=== PATIENT | male | born 1980 | race American Indian/Alaskan Native ===

== ENCOUNTER 2017-11-14 18:13 | Inpatient (IN) | payer SELFPAY ==
[2017-11-14] MEDS ORDERED: ZOFRAN ODT PO ONE (20:35)
[2017-11-14] MEDS ORDERED: TYLENOL PO ONE (20:36)
--- NOTE | 2017-11-14 21:18 | XRay Report ---
FINAL REPORT PROCEDURE: XR CHEST ROUTINE 2V TECHNIQUE: PA and lateral chest radiographs were obtained. CPT 81152 HISTORY: cough and right rib pain COMPARISON: No prior studies are available for comparison. FINDINGS: Heart: Normal. Mediastinum/Vessels: Normal. Lungs/Pleural space: Hazy density is noted involving the inferior portion of a right upper lobe above oblique and horizontal fissures most likely representing consolidation. Left lung and bilateral pleural spaces are clear.. Bony thorax: No acute osseous abnormality. Other: IMPRESSION: Consolidation right upper lobe consistent with pneumonia..
[2017-11-14] MEDS ORDERED: XYLOCAINE 1% MPF 5 mL INFILTRATI ONE (21:27)
[2017-11-14] MEDS ORDERED: ROCEPHIN IM STA (21:27)
--- NOTE | 2017-11-14 21:27 | Emergency Department Report ---
HPI - General Chief Complaint: Fever Time Seen by Provider: 11/14/17 21:02 - HPI HPI: Patient here reports that he's been having fever, cough and right rib pain with coughing, pain with inspiration that started at 2 AM this morning. He reports that he feels like he has a fever and also has chills. Positive shortness of breath , negative chest pain. Denies any vomiting but reports nausea.. Pain is worse with coughing and inspiration better at rest. No [id number] medication taken. Patient said he had pneumonia several years ago and that he does not have any medical problems. His blood pressure is 152/104 and denies any headache, dizziness, blurred vision. Patient said he had a cold a couple weeks ago and he took [id number] pain medication and felt better. Patient was given Tylenol 650 mg in triage area along with Zofran 8 mg ODT. ED Past Medical Hx - Past Medical History Previous Medical History?: Yes Additional medical history: Pneumonia several years ago - Surgical History Past Surgical History?: Yes Additional Surgical History: right hand tendon surgery - Family History Family history: hypertension - Social History Smoking Status: Never Smoker Substance Use Type: None - Medications Home Medications: Home Medications Medication Instructions Recorded Confirmed Last Taken Type HYDROcodone/APAP 5-325 [[place] 1 each PO Q6HR PRN #15 tablet 09/16/16 Unknown Rx 5/325] ED Review of Systems ROS: Stated complaint: BREATHING PAIN/FEVER Other details as noted in HPI Comment: All other systems reviewed and negative Constitutional: chills Eyes: denies: eye pain, eye discharge, vision change ENT: denies: ear pain, throat pain, congestion Respiratory: cough, other (pain to ribs with inspiration and when coughing). denies: see HPI, orthopnea, shortness of breath, SOB with exertion, SOB at rest , stridor, wheezing Cardiovascular: denies: chest pain, palpitations, dyspnea on exertion, orthopnea , edema, syncope, paroxysmal nocturnal dyspnea Gastrointestinal: nausea. denies: abdominal pain Genitourinary: denies: urgency, dysuria, frequency, hematuria, discharge, testicular pain, testicular mass Musculoskeletal: denies: back pain, joint swelling, arthralgia, myalgia Skin: denies: rash Neurological: denies: headache Physical Exam - Physical Exam Vital Signs: Vital Signs 11/14/17 20:28 Temperature 100.9 F H Pulse Rate 102 H Respiratory 18 Rate Blood Pressure 152/104 O2 Sat by Pulse 96 Oximetry Vital Signs 11/14/17 11/14/17 11/14/17 19:53 20:28 22:27 Temperature 100.9 F H 100.9 F H Pulse Rate 118 H 102 H 146 H Respiratory 19 18 20 Rate Blood Pressure 152/104 152/104 150/105 O2 Sat by Pulse 94 96 91 Oximetry 11/14/17 11/14/17 22:31 22:36 Temperature 99.6 F Pulse Rate 121 H Respiratory Rate Blood Pressure O2 Sat by Pulse 94 Oximetry General: This is a 37-year-old male well-nourished well-developed in no acute distress. Physical Exam: Head: Normocephalic, atraumatic, no abrasion, no bruising and no contusion. Eyes: Biateral pupils equal and reactive to light, bilateral EOM intact.. Bilateral conjunctival and sclera without injection, normal accommodation. No nystagmus Mouth: Moist, no pharyngeal exudate or erythema. No peritonsillar abscesses. Uvula is midline and oral airways patent. Ears: TM congested without erythema. Bilateral EAC without any redness swelling or drainage. No mastoid bone tenderness Nose: Lateral nasal turbinates congested with erythema and clear drainage. Maxillary and frontal sinuses tender to palpate. Neck: Supple, No Cervical adenopathy, full range of motion and no C-spine tenderness. No swelling or tracheal deviation normal reflexes Cardiovascular: S1, S2. Tachycardic at 121, Regular rhythm. No murmur. Capillary refill is less then 3 seconds. Lungs: Clear to auscultate bilaterally. No rhonchi, wheezes or rales. No chest wall tenderness. No chest contusion. No bruising to chest. MSK: Strength 5/5 in all extremities. No joint deformity or crepitus. Normal inspection. Full range of motion to all extremities. No laceration, abrasion or ecchymotic area noted. Patient able to fully flex and extend bilateral knees without any difficulties. Bilateral knees nontender to palpate. Abdomen: Non-tender to palpate in all quadrants, no guarding or rebound tenderness, positive bowel sounds in all quadrants. No CVA tenderness. No hernia, bruit or mass. No rigidity or distention. Extremities: No clubbing, cyanosis or edema. +2 pulses. No neurovascular compromise Skin: Clean, dry and intact. No rash or lesions. Neurological: GCS at 15, Pt is alert and oriented 3 speech is clear period. Bilateral hand district captain strong and equal. Normal gait. Negative Romberg and no pronator drift. Normal Reflexes. No motor or sensory deficit Back: No vertebral tenderness, no paraspinal tenderness. The bend over and touch his toes without any difficulties. Ambulates without any difficulties. Psych: Normal mood and behavior ED Course Vital Signs 11/14/17 20:28 Temperature 100.9 F H Pulse Rate 102 H Respiratory 18 Rate Blood Pressure 152/104 O2 Sat by Pulse 96 Oximetry Vital Signs 11/14/17 11/14/17 11/14/17 19:53 20:28 22:27 Temperature 100.9 F H 100.9 F H Pulse Rate 118 H 102 H 146 H Respiratory 19 18 20 Rate Blood Pressure 152/104 152/104 150/105 O2 Sat by Pulse 94 96 91 Oximetry 11/14/17 22:31 Temperature 99.6 F Pulse Rate Respiratory Rate Blood Pressure O2 Sat by Pulse Oximetry Vital Signs 11/14/17 11/14/17 11/14/17 19:53 20:28 22:27 Temperature 100.9 F H 100.9 F H Pulse Rate 118 H 102 H 146 H Respiratory 19 18 20 Rate Blood Pressure 152/104 152/104 150/105 O2 Sat by Pulse 94 96 91 Oximetry 11/14/17 11/14/17 22:31 22:36 Temperature 99.6 F Pulse Rate 121 H Respiratory Rate Blood Pressure O2 Sat by Pulse 94 Oximetry - Reevaluation(s) Reevaluation #1: 11/14/17 22:44 Patient given Rocephin 1 g IM in emergency room. He was challenged with 6 cups of apple juice orally and he tolerated without any vomiting. Patient was given Tylenol 650 mg in triage area along with Zofran 8 mg ODT for fever, pain and Zofran for nausea and he voiced relief of nausea but that he still having pain. Morphine 4 mg IV ordered. Decision made to admit patient due to pulse ox of 94% on room air, tachycardia and elevated white blood cells that greater than 25. Patient says he is still short of breath. Patient's chest x-ray shows right upper lobe pneumonia. Patient given Xopenex 1.25 mg and Atrovent 0.5 mg nebulizer treatment. With elevated blood pressure but he denies any history of hypertension Reevaluation #2: 11/14/17 23:12 lactic acid is 3.0. We'll obtain serial lactic acid. Dr. Warren notified. Patient to get another liter of IV fluid. Sepsis protocol already initiated. 11/14/17 23:18 ED Medical Decision Making - Lab Data Result diagrams: 11/16/17 06:14 11/16/17 06:14 Lab Results 11/14/17 11/14/17 11/14/17 Range/Units 21:50 21:50 21:50 WBC 26.5 H (4.5-11.0) K/mm3 RBC 5.68 H (3.65-5.03) M/mm3 Hgb 13.9 (11.8-15.2) gm/dl Hct 42.4 (35.5-45.6) % MCV 75 L (84-94) fl MCH 25 L (28-32) pg MCHC 33 (32-34) % RDW 15.7 H (13.2-15.2) % Plt Count 261 (140-440) K/mm3 VBG pH 7.426 H (7.320-7.420) Sodium 136 L (137-145) mmol/L Potassium 3.4 L (3.6-5.0) mmol/L Chloride 94.9 L (98-107) mmol/L Carbon Dioxide 22 (22-30) mmol/L Anion Gap 23 mmol/L BUN 8 L (9-20) mg/dL Creatinine 0.9 (0.8-1.5) mg/dL Estimated GFR > 60 ml/min BUN/Creatinine Ratio 9 % Glucose 146 H (75-100) mg/dL Calcium 8.9 (8.4-10.2) mg/dL Blood cultures pending Lactic Acid pending - Radiology Data Radiology results: report reviewed Chest x-ray revealed patient with consolidation to right upper lobe consistent with pneumonia. - Medical Decision Making ED course: She reports that he's been having fever, cough and right rib pain worse with coughing and inspiration started at 2 AM this morning. He came to the emergency room for evaluation. Patient found to have right upper lobe pneumonia, fever in adults, cough in adults and leukocytosis. CBC white count of greater than 25 and other values are pending., BMP potassium 3.4, hyponatremia. CO2 is a 22 . Lactic acid is pending. Venous pH is mildly elevated. Patient orally challenge and emergency room and tolerated fluids well but he still remains with tachycardia, shortness of breath and pain with inspiration. Still awaiting results of lactic acid and blood cultures are pending. Arterial blood gas ordered. Patient to receive 1 L of normal saline and he was given Rocephin 1 g IM. INT started and patient to receive morphine 4 mg IV. Patient was given Zofran 8 mg ODT for nausea which relieved his nausea and triage area and Tylenol 650 mg by mouth for fever and pain. I spoke with Dr. Hein and it was decided the patient will be admitted for further treatment of community-acquired pneumonia. He's been admitted for low O2 sat, tachycardia, leukocytosis and community-acquired pneumonia that is not stable. I discussed patient's plans to admit and is in agreement. Patient is stable at present. His blood pressure is elevated and patient reports that he does not have a history of high blood pressure. We'll continue to monitor and care taken over by hospitalist. Dr. Warren, notified of patient lab results included in lactic acid which is 3.0. IV fluid infusing. I updated Dr. Hein on labs and patient's status. Critical care attestation.: If time is entered above; I have spent that time in minutes in the direct care of this critically ill patient, excluding procedure time. ED Disposition Clinical Impression: Cough in adult, Fever and chills, Hypokalemia, Tachycardia, Hyponatremia Pneumonia Qualifiers: Pneumonia type: due to unspecified organism Laterality: right Lung location: upper lobe of lung Qualified Code(s): J18.1 - Lobar pneumonia, unspecified organism Leukocytosis Qualifiers: Leukocytosis type: unspecified Qualified Code(s): D72.829 - Elevated white blood cell count, unspecified Disposition: OP ADMIT IP TO THIS HOSP Is pt being admited?: Yes Does the pt Need Aspirin: No Condition: Stable
[2017-11-14] MEDS ORDERED: XOPENEX IH ONE (21:31)
[2017-11-14] MEDS ORDERED: ATROVENT IH ONE (21:31)
[2017-11-14 22:06] LABS: Hematocrit 42.4 % (35.5-45.6); Hemoglobin 13.9 gm/dl (11.8-15.2); Mean Corpuscular HGB Conc 33 % (32-34); Mean Corpuscular Volume 75 fl (84-94); Platelet Count 261 K/mm3 (140-440); Red Blood Count 5.68 M/mm3 (3.65-5.03); Red Cell Distribution Width 15.7 % (13.2-15.2)
[2017-11-14 22:08] LABS: Mean Corpuscular Hemoglobin 25 pg (28-32)
[2017-11-14 22:24] LABS: BUN/Creatinine Ratio 9; Blood Urea Nitrogen 8 mg/dL (9-20); Calcium 8.9 mg/dL (8.4-10.2); Hemolysis Index 3
[2017-11-14] MEDS ORDERED: NACL 0.9% 1000 ML 1,000 ML IV ONE ×2 (22:41→23:18)
[2017-11-14] MEDS ORDERED: K-DUR PO ONE (22:41)
[2017-11-14] MEDS ORDERED: MORPHINE IV ONE (22:43)
[2017-11-14 23:03] LABS: Band Neutrophils # (Manual) 2.4 K/mm3; Basophils % (Manual) 0 % (0.0-1.8); Eosinophils % (Manual) 0 % (0.0-4.3); Large Platelets Few; RBC Morphology Normal; Total Cells Counted 200
[2017-11-14] MEDS ORDERED: cefTRIAXone 1 GM in NACL 0.9% 20 ML IV ONE (23:05)
[2017-11-14] MEDS ORDERED: ZITHROMAX 500 MG in NACL 0.9% 250ML 250 ML IV ONE (23:05)
[2017-11-14] MEDS ORDERED: SODIUM CHLORIDE FLUSH SYRINGE 10 ML IV PRN (23:08)
[2017-11-14 23:58] LABS: INR 1.06 (0.87-1.13)
--- NOTE | 2017-11-15 00:02 | History and Physical Report ---
History of Present Illness Date of examination: 11/14/17 Date of admission: 11/14/17 23:08 Chief complaint: chief complaint: Fever cough for 1 day. History of present illness: YOHANA: 37-year-old -[place] male with no significant past medical history comes in for fever cough and right chest pain with inspiration.. All the symptoms started last nigh around 2 AM. Also has fever and chills and shortness of breath. Also has muscle aches.cough or a mucoid sputum to yellow sputum. No recent travel. - Past Medical History Previous Medical History?: Yes Additional medical history: Pneumonia several years ago - Surgical History Past Surgical History?: Yes Additional Surgical History: right hand tendon surgery - Family History Family history: hypertension - Social History Smoking Status: Never Smoker Substance Use Type: None - Medications Home Medications: Home Medications Medication Instructions Recorded Confirmed Last Taken Type HYDROcodone/APAP 5-325 [[place] 1 each PO Q6HR PRN #15 tablet 09/16/16 Unknown Rx 5/325] ROS: Stated complaint: BREATHING PAIN/FEVER Other details as noted in HPI Comment: All other systems reviewed and negative Constitutional: chills Eyes: denies: eye pain, eye discharge, vision change ENT: denies: ear pain, throat pain, congestion Respiratory: cough, other (pain to ribs with inspiration and when coughing). denies: see HPI, orthopnea, shortness of breath, SOB with exertion, SOB at rest , stridor, wheezing Cardiovascular: denies: chest pain, palpitations, dyspnea on exertion, orthopnea , edema, syncope, paroxysmal nocturnal dyspnea Gastrointestinal: nausea. denies: abdominal pain Genitourinary: denies: urgency, dysuria, frequency, hematuria, discharge, testicular pain, testicular mass Musculoskeletal: denies: back pain, joint swelling, arthralgia, myalgia Skin: denies: rash Neurological: denies: headache Medications and Allergies Allergies Allergy/AdvReac Type Severity Reaction Status Date / Time No Known Allergies Allergy Unverified 09/14/15 00:36 Home Medications Medication Instructions Recorded Confirmed Last Taken Type HYDROcodone/APAP 5-325 [[place] 1 each PO Q6HR PRN #15 tablet 09/16/16 Unknown Rx 5/325] Active Meds: Active Medications Azithromycin 500 mg/ Sodium (Chloride) 250 mls @ 250 mls/hr IV ONCE.ED ONE Stop: 11/15/17 00:04 Sodium Chloride (Nacl 0.9% 1000 Ml) 1,000 mls @ 999 mls/hr IV BOLUS ONE Stop: 11/15/17 00:18 Sodium Chloride (Sodium Chloride Flush Syringe 10 Ml) 10 ml IV PRN PRN PRN Reason: LINE FLUSH Exam - Constitutional Vitals: Temp Pulse Resp BP Pulse Ox 99.6 F 121 H 20 150/105 94 11/14/17 22:31 11/14/17 22:36 11/14/17 22:54 11/14/17 22:27 11/14/17 22:36 General appearance: Present: no acute distress, well-nourished - EENT Eyes: Present: PERRL ENT: hearing intact, clear oral mucosa - Neck Neck: Present: supple, normal ROM - Respiratory Respiratory effort: normal Respiratory: right: rales, rhonchi, bilateral: CTA - Cardiovascular Heart rate: 90 Rhythm: regular Heart Sounds: Present: S1 & S2. Absent: rub, click - Extremities Extremities: no ischemia, pulses intact, pulses symmetrical, No edema Peripheral Pulses: within normal limits - Abdominal General gastrointestinal: Present: soft, non-tender, non-distended, normal bowel sounds Male genitourinary: Present: normal - Rectal Rectal Exam: deferred - Integumentary Integumentary: Present: clear, warm, dry - Musculoskeletal Musculoskeletal: gait normal, strength equal bilaterally - Psychiatric Psychiatric: appropriate mood/affect, intact judgment & insight - Neurologic Neurologic: CNII-XII intact, moves all extremities - Allied Health Allied health notes reviewed: nursing, case management Results - Labs CBC & Chem 7: 11/14/17 21:50 11/14/17 21:50 Labs: Laboratory Last Values WBC 26.5 K/mm3 (4.5-11.0) H 11/14/17 21:50 RBC 5.68 M/mm3 (3.65-5.03) H 11/14/17 21:50 Hgb 13.9 gm/dl (11.8-15.2) 11/14/17 21:50 Hct 42.4 % (35.5-45.6) 11/14/17 21:50 MCV 75 fl (84-94) L 11/14/17 21:50 MCH 25 pg (28-32) L 11/14/17 21:50 MCHC 33 % (32-34) 11/14/17 21:50 RDW 15.7 % (13.2-15.2) H 11/14/17 21:50 Plt Count 261 K/mm3 (140-440) 11/14/17 21:50 Add Manual Diff Complete 11/14/17 21:50 Total Counted 200 11/14/17 21:50 Seg Neuts % (Manual) 79.0 % (40.0-70.0) H 11/14/17 21:50 Band Neutrophils % 9.0 % 11/14/17 21:50 Lymphocytes % (Manual) 9.0 % (13.4-35.0) L 11/14/17 21:50 Reactive Lymphs % (Man) 0 % 11/14/17 21:50 Monocytes % (Manual) 3.0 % (0.0-7.3) 11/14/17 21:50 Eosinophils % (Manual) 0 % (0.0-4.3) 11/14/17 21:50 Basophils % (Manual) 0 % (0.0-1.8) 11/14/17 21:50 Metamyelocytes % 0 % 11/14/17 21:50 Myelocytes % 0 % 11/14/17 21:50 Promyelocytes % 0 % 11/14/17 21:50 Blast Cells % 0 % 11/14/17 21:50 Nucleated RBC % Not Reportable 11/14/17 21:50 Seg Neutrophils # Man 20.9 K/mm3 (1.8-7.7) H 11/14/17 21:50 Band Neutrophils # 2.4 K/mm3 11/14/17 21:50 Lymphocytes # (Manual) 2.4 K/mm3 (1.2-5.4) 11/14/17 21:50 Abs React Lymphs (Man) 0.0 K/mm3 11/14/17 21:50 Monocytes # (Manual) 0.8 K/mm3 (0.0-0.8) 11/14/17 21:50 Eosinophils # (Manual) 0.0 K/mm3 (0.0-0.4) 11/14/17 21:50 Basophils # (Manual) 0.0 K/mm3 (0.0-0.1) 11/14/17 21:50 Metamyelocytes # 0.0 K/mm3 11/14/17 21:50 Myelocytes # 0.0 K/mm3 11/14/17 21:50 Promyelocytes # 0.0 K/mm3 11/14/17 21:50 Blast Cells # 0.0 K/mm3 11/14/17 21:50 WBC Morphology Not Reportable 11/14/17 21:50 Hypersegmented Neuts Not Reportable 11/14/17 21:50 Hyposegmented Neuts Not Reportable 11/14/17 21:50 Hypogranular Neuts Not Reportable 11/14/17 21:50 Smudge Cells Not Reportable 11/14/17 21:50 Toxic Granulation Not Reportable 11/14/17 21:50 Toxic Vacuolation Not Reportable 11/14/17 21:50 Dohle Bodies Not Reportable 11/14/17 21:50 Pelger-Huet Anomaly Not Reportable 11/14/17 21:50 Lacho Rods Not Reportable 11/14/17 21:50 Platelet Estimate Appears normal 11/14/17 21:50 Clumped Platelets Not Reportable 11/14/17 21:50 Plt Clumps, EDTA Not Reportable 11/14/17 21:50 Large Platelets Few 11/14/17 21:50 Giant Platelets Not Reportable 11/14/17 21:50 Platelet Satelliting Not Reportable 11/14/17 21:50 Plt Morphology Comment Not Reportable 11/14/17 21:50 RBC Morphology Normal 11/14/17 21:50 Dimorphic RBCs Not Reportable 11/14/17 21:50 Polychromasia Not Reportable 11/14/17 21:50 Hypochromasia Not Reportable 11/14/17 21:50 Poikilocytosis Not Reportable 11/14/17 21:50 Anisocytosis Not Reportable 11/14/17 21:50 Microcytosis Not Reportable 11/14/17 21:50 Macrocytosis Not Reportable 11/14/17 21:50 Spherocytes Not Reportable 11/14/17 21:50 Pappenheimer Bodies Not Reportable 11/14/17 21:50 Sickle Cells Not Reportable 11/14/17 21:50 Target Cells Not Reportable 11/14/17 21:50 Tear Drop Cells Not Reportable 11/14/17 21:50 Ovalocytes Not Reportable 11/14/17 21:50 Helmet Cells Not Reportable 11/14/17 21:50 Lambert-Anon Raices Bodies Not Reportable 11/14/17 21:50 Matthews Rings Not Reportable 11/14/17 21:50 [place] Cells Not Reportable 11/14/17 21:50 Bite Cells Not Reportable 11/14/17 21:50 Crenated Cell Not Reportable 11/14/17 21:50 Elliptocytes Not Reportable 11/14/17 21:50 Acanthocytes (Spur) Not Reportable 11/14/17 21:50 Rouleaux Not Reportable 11/14/17 21:50 Hemoglobin C Crystals Not Reportable 11/14/17 21:50 Schistocytes Not Reportable 11/14/17 21:50 Malaria parasites Not Reportable 11/14/17 21:50 Dm Bodies Not Reportable 11/14/17 21:50 Hem Pathologist Commnt No 11/14/17 21:50 PT 14.4 Sec. (12.2-14.9) 11/14/17 23:31 INR 1.06 (0.87-1.13) 11/14/17 23:31 POC ABG pH 7.413 (7.35-7.45) 11/14/17 23:21 POC ABG pCO2 28.4 (35-45) L 11/14/17 23:21 POC ABG pO2 75 (80-105) L 11/14/17 23:21 POC ABG HCO3 18.1 11/14/17 23:21 POC ABG Total CO2 19 11/14/17 23:21 POC ABG O2 Sat 95 11/14/17 23:21 POC ABG Base Excess -6 11/14/17 23:21 VBG pH 7.426 (7.320-7.420) H 11/14/17 21:50 FiO2 21 % 11/14/17 23:21 Sodium 136 mmol/L (137-145) L 11/14/17 21:50 Potassium 3.4 mmol/L (3.6-5.0) L 11/14/17 21:50 Chloride 94.9 mmol/L (98-107) L 11/14/17 21:50 Carbon Dioxide 22 mmol/L (22-30) 11/14/17 21:50 Anion Gap 23 mmol/L 11/14/17 21:50 BUN 8 mg/dL (9-20) L 11/14/17 21:50 Creatinine 0.9 mg/dL (0.8-1.5) 11/14/17 21:50 Estimated GFR > 60 ml/min 11/14/17 21:50 BUN/Creatinine Ratio 9 % 11/14/17 21:50 Glucose 146 mg/dL (75-100) H 11/14/17 21:50 Lactic Acid 3.00 mmol/L (0.7-2.0) H* 11/14/17 21:50 Calcium 8.9 mg/dL (8.4-10.2) 11/14/17 21:50 - Imaging and Cardiology EKG: report reviewed (sinus tachycardia) Chest x-ray: report reviewed (right upper lobe pneumonia) Assessment and Plan Advance Directives: Yes (full code ) VTE prophylaxis?: Chemical Plan of care discussed with patient/family: Yes - Patient Problems (1) Pneumonia Current Visit: Yes Status: Acute Qualifiers: Pneumonia type: due to unspecified organism Laterality: right Lung location: upper lobe of lung Qualified Code(s): J18.1 - Lobar pneumonia, unspecified organism Plan to address problem: patient has massive consolidation in the right upper lobe. Will treat with Rocephin and Zithromax. Clinical picture consistent with bacterial pneumonia. Tuberculosis is a low possibility.patient not isolated. ID consult requested. (2) Leukocytosis Current Visit: Yes Status: Acute Qualifiers: Leukocytosis type: unspecified Qualified Code(s): D72.829 - Elevated white blood cell count, unspecified Plan to address problem: Secondary to pneumonia (3) SIRS (systemic inflammatory response syndrome) Current Visit: Yes Status: Acute Plan to address problem: patient has leukocytosis and high fever consistent with SIRS (4) Hypokalemia Current Visit: Yes Status: Acute Plan to address problem: supplemented (5) DVT prophylaxis Current Visit: Yes Status: Acute Plan to address problem: on Lovenox
[2017-11-15 00:07] LABS: Alanine Aminotransferase 34 units/L (7-56); Albumin 3.8 g/dL (3.9-5); Bilirubin,Direct 0.4 mg/dL (0-0.2)
[2017-11-15 00:10] LABS: Bilirubin,Urine NEG (Negative); Blood,Urine NEG (Negative); Color,Urine Amber (Yellow); Mucus,Urine FEW /HPF; Nitrite,Urine NEG (Negative); Urobilinogen,Urine < 2.0 mg/dL (<2.0)
[2017-11-15] MEDS ORDERED: NACL 0.9% 1000 ML 1,000 ML ONE (00:16)
[2017-11-15] MEDS ORDERED: MORPHINE IV ONE (04:25)
[2017-11-15] MEDS ORDERED: MORPHINE ONE (04:27)
[2017-11-15] MEDS ORDERED: K-DUR PO ONE ×3 (07:12→07:32)
[2017-11-15] MEDS ORDERED: NORCO 5/325 PO PRN (08:16)
--- NOTE | 2017-11-15 08:51 | Cat Scan Report ---
FINAL REPORT EXAM: CT ANGIO CHEST HISTORY: SOB TECHNIQUE: CT angiography of the chest was performed. 100 cc Omnipaque 350 IV was administered. Coronal and sagittal reformatted images were obtained. Rotational MIPS images obtained PRIORS: . None. FINDINGS: There is no significant mediastinal or hilar mass seen. There is no aortic dissection seen. There are no filling defects seen within the pulmonary arterial circulation to suggest pulmonary embolism. There are no pleural effusions seen. There is an area of right upper lobe consolidation which is compatible with pneumonia. There are additional coarse parenchymal densities in the right lower lobe which is probably atelectasis although additional infiltrate not excluded. There are multiple small air containing cysts/pneumatocele bilaterally. The ones in the lower lungs are unchanged from priors CT abdomen/pelvis of 09/16/2016. There is no pneumothorax seen. There is fatty infiltration of the liver. IMPRESSION: Right upper lobe pneumonia. Coarse parenchymal densities in the right lower lobe probably reflect atelectasis although additional infiltrate not excluded. There is no pulmonary embolism or aortic dissection seen. Fatty liver.
[2017-11-15] MEDS: NORCO 5/325 PO PRN ×2 (11:19→23:42)
[2017-11-15] MEDS: GUAIFENESIN DM SYRUP PO PRN (11:20)
[2017-11-15] MEDS: LEVAQUIN 750MG/150ML 750 MG/150 ML BAG IV SCH (11:21)
[2017-11-15] MEDS: PROVENTIL IH SCH ×2 (11:54→16:20)
--- NOTE | 2017-11-15 12:45 | Consultation ---
History of Present Illness - Reason for Consult Consult date: 11/15/17 pneumonia Requesting physician: WALESKA MONET - History of Present Illness 37 years old male with no known medical history, admitted on 11/14/2017 due to 3 day history of runny nose, chest congestion and productive cough with yellowish sputum. Patient reports that his son has been sick with a cold. Patient also was c/o right sided chest pain worsening with inspiration. Pain was 8/10. He also c/o fever 102 and chills. Patient did not have the flu shot. Patient reported that he woke up coughing and decided to come to the emergency room. In the emergency room, initial temperature was 100.9, heart rate 118, respirations 19, O2 sat 94, blood pressure 152/104. Initial white count 26.5. Creatinine 0.9. Lactic acid 3. Urinalysis was negative. Monospot negative. Chest x-ray showing right upper lobe and right lower lobe consolidation. Microbiology: Blood cultures: 11/14 ngtd Urine cultures: Respiratory cultures: Current Antimicrobials: Levaquin 11/14 Previous Antimicrobials: Past History Past Surgical History: No surgical history Social history: no significant social history, alcohol abuse. denies: smoking Family history: no significant family history Medications and Allergies Allergies Allergy/AdvReac Type Severity Reaction Status Date / Time No Known Allergies Allergy Unverified 09/14/15 00:36 Home Medications Medication Instructions Recorded Confirmed Last Taken Type HYDROcodone/APAP 5-325 [[place] 1 each PO Q6HR PRN #15 tablet 09/16/16 Unknown Rx 5/325] Active Meds: Active Medications Acetaminophen/Hydrocodone Bitart ([place] 5/325) 2 each PO Q6H PRN PRN Reason: Pain Last Admin: 11/15/17 11:19 Dose: 2 each Albuterol (Proventil) 2.5 mg IH Q4HRT FAN Last Admin: 11/15/17 11:54 Dose: 2.5 mg Guaifenesin (Guaifenesin Dm Syrup) 10 ml PO Q4H PRN PRN Reason: Cough Last Admin: 11/15/17 11:20 Dose: 10 ml Levofloxacin/Dextrose (Levaquin 750mg/150ml) 750 mg in 150 mls @ 100 mls/hr IV Q24HR FAN PRN Reason: Protocol Last Admin: 11/15/17 11:21 Dose: 100 mls/hr Sodium Chloride (Sodium Chloride Flush Syringe 10 Ml) 10 ml IV PRN PRN PRN Reason: LINE FLUSH Review of Systems All systems: negative (as per hpi rest neg) Physical Examination - Physical Exam Narrative exam: General appearance: Alert in NAD, conversant Eyes: anicteric sclerae, moist conjunctivae; no lid-lag; PERRLA HENT: Atraumatic; oropharynx clear with moist mucous membranes and no mucosal ulcerations/no oral thrush; normal hard and soft palate. Normal external ears. Neck: Trachea midline; supple, no thyromegaly or lymphadenopathy Lungs: right sided crackles CV: RRR, no murmurs Abdomen: Soft, non-tender; no masses or hepatosplenomegaly Extremities: No peripheral edema or extremity lymphadenopathy Skin: Normal temperature, turgor and texture; no rash, ulcers or subcutaneous nodules Psych: Appropriate affect, alert and oriented to person, place and time. Neuro: alert and oriented x 3. Moving all extermities Lines: No CVL / PICC - Constitutional Vitals: Vital Signs Temp Pulse Resp BP Pulse Ox 98.6 F 100 H 18 154/103 94 11/15/17 09:53 11/15/17 11:54 11/15/17 11:54 11/15/17 09:53 11/15/17 10:00 Temperature -Last 24 Hours Temperature 98.6 F Temperature 99.9 F Temperature 99.8 F Temperature 99.6 F Temperature 100.9 F Temperature 100.9 F Results - Labs CBC & Chem 7: 11/14/17 21:50 11/14/17 21:50 Labs: Abnormal lab results 11/14/17 11/14/17 11/14/17 Range/Units 21:50 21:50 21:50 WBC 26.5 H (4.5-11.0) K/mm3 RBC 5.68 H (3.65-5.03) M/mm3 MCV 75 L (84-94) fl MCH 25 L (28-32) pg RDW 15.7 H (13.2-15.2) % Seg Neuts % (Manual) 79.0 H (40.0-70.0) % Lymphocytes % (Manual) 9.0 L (13.4-35.0) % Seg Neutrophils # Man 20.9 H (1.8-7.7) K/mm3 POC ABG pCO2 (35-45) POC ABG pO2 (80-105) VBG pH (7.320-7.420) Sodium 136 L (137-145) mmol/L Potassium 3.4 L (3.6-5.0) mmol/L Chloride 94.9 L (98-107) mmol/L BUN 8 L (9-20) mg/dL Glucose 146 H (75-100) mg/dL Lactic Acid 3.00 H* (0.7-2.0) mmol/L Total Bilirubin (0.1-1.2) mg/dL Direct Bilirubin (0-0.2) mg/dL C-Reactive Protein (0.00-1.30) mg/dL Albumin (3.9-5) g/dL Ur Specific [place] (1.003-1.030) 11/14/17 11/14/17 11/14/17 Range/Units 21:50 23:21 23:26 WBC (4.5-11.0) K/mm3 RBC (3.65-5.03) M/mm3 MCV (84-94) fl MCH (28-32) pg RDW (13.2-15.2) % Seg Neuts % (Manual) (40.0-70.0) % Lymphocytes % (Manual) (13.4-35.0) % Seg Neutrophils # Man (1.8-7.7) K/mm3 POC ABG pCO2 28.4 L (35-45) POC ABG pO2 75 L (80-105) VBG pH 7.426 H (7.320-7.420) Sodium (137-145) mmol/L Potassium (3.6-5.0) mmol/L Chloride (98-107) mmol/L BUN (9-20) mg/dL Glucose (75-100) mg/dL Lactic Acid (0.7-2.0) mmol/L Total Bilirubin (0.1-1.2) mg/dL Direct Bilirubin (0-0.2) mg/dL C-Reactive Protein (0.00-1.30) mg/dL Albumin (3.9-5) g/dL Ur Specific [place] 1.032 H (1.003-1.030) 11/14/17 Range/Units 23:31 WBC (4.5-11.0) K/mm3 RBC (3.65-5.03) M/mm3 MCV (84-94) fl MCH (28-32) pg RDW (13.2-15.2) % Seg Neuts % (Manual) (40.0-70.0) % Lymphocytes % (Manual) (13.4-35.0) % Seg Neutrophils # Man (1.8-7.7) K/mm3 POC ABG pCO2 (35-45) POC ABG pO2 (80-105) VBG pH (7.320-7.420) Sodium (137-145) mmol/L Potassium (3.6-5.0) mmol/L Chloride (98-107) mmol/L BUN (9-20) mg/dL Glucose (75-100) mg/dL Lactic Acid (0.7-2.0) mmol/L Total Bilirubin 1.30 H (0.1-1.2) mg/dL Direct Bilirubin 0.4 H (0-0.2) mg/dL C-Reactive Protein 19.90 H (0.00-1.30) mg/dL Albumin 3.8 L (3.9-5) g/dL Ur Specific [place] (1.003-1.030) Assessment and Plan Assessment: 1) Sepsis: Present on admission, manifested by fever, tachycardia, leukocytosis , increased lactate. Etiology most likely pneumonia. 2) Right sided pneumonia: likely CAP Plan: -follow-up blood cultures -obtain respiratory cultures C-reactive protein (CRP) -check influenza antigen PCR in nasopharinx -check Legionella urine antigen, Streptococcus pneumoniae urine antigen, Mycoplasma serology, Chlamydia pneumophila serology -add ceftriaxone 2 g IV q day -continue levaquin -monitor fever -check HIV -If clinically better ok to d/c on levaquin 750 m po qday total [address] Monet for your consultation, will follow up with you. Anjana Villagomez MD Infectious Diseases Specialist [facility] ([facility]) M [phone] O [phone]
[2017-11-15] MEDS ORDERED: ROCEPHIN/NS 2 GM/100 ML 2 GM/100 ML BAG IV SCH (13:00)
--- NOTE | 2017-11-15 13:18 | Progress Note ---
Assessment and Plan Assessment and plan: 37-year-old -[place] male with no significant past medical history admitted to the floor for management of pneumonia after he was presented to his cough, fever, runny nose for the last 3 days. Sepsis Pneumonia, right upper lobe Pleuritic chest pain Lactic acidosis, resolved - Patient is on IV Levaquin and ceftriaxone - CT showed right upper lobe pneumonia, no PE - IV fluids - Pain control - Follow blood cultures, repeat CBC and BMP - ID consult appreciated DVT prophylaxis Disposition - Possible discharge tomorrow with by mouth antibiotics History Interval history: Patient was seen and divided this morning, he was complaining right-sided pleuritic chest pain. Hospitalist Physical - Physical exam Narrative exam: Not in cardiopulmonary distress. The patient appeared well nourished and normally developed. Vital signs as documented. Head exam is unremarkable. No scleral icterus . Neck is without jugular venous distension, thyromegaly, or carotid bruits. Lungs coarse crepitus on the right lung. Cardiac exam reveals regular rate and Rhythm. First and second heart sounds normal. No murmurs, rubs or gallops. Abdominal exam reveals normal bowel sounds, no masses, no organomegaly and no aortic enlargement. Extremities are nonedematous and both femoral and pedal pulses are normal. DATA MODELING SPECIALIST: Alert and oriented 3. No focal weakness. - Constitutional Vitals: Temp Pulse Resp BP Pulse Ox 98.6 F 100 H 18 154/103 94 11/15/17 09:53 11/15/17 11:54 11/15/17 11:54 11/15/17 09:53 11/15/17 10:00 General appearance: Present: no acute distress, well-nourished Results - Labs CBC & Chem 7: 11/14/17 21:50 11/14/17 21:50 Labs: Laboratory Last Values WBC 26.5 K/mm3 (4.5-11.0) H 11/14/17 21:50 RBC 5.68 M/mm3 (3.65-5.03) H 11/14/17 21:50 Hgb 13.9 gm/dl (11.8-15.2) 11/14/17 21:50 Hct 42.4 % (35.5-45.6) 11/14/17 21:50 MCV 75 fl (84-94) L 11/14/17 21:50 MCH 25 pg (28-32) L 11/14/17 21:50 MCHC 33 % (32-34) 11/14/17 21:50 RDW 15.7 % (13.2-15.2) H 11/14/17 21:50 Plt Count 261 K/mm3 (140-440) 11/14/17 21:50 Add Manual Diff Complete 11/14/17 21:50 Total Counted 200 11/14/17 21:50 Seg Neuts % (Manual) 79.0 % (40.0-70.0) H 11/14/17 21:50 Band Neutrophils % 9.0 % 11/14/17 21:50 Lymphocytes % (Manual) 9.0 % (13.4-35.0) L 11/14/17 21:50 Reactive Lymphs % (Man) 0 % 11/14/17 21:50 Monocytes % (Manual) 3.0 % (0.0-7.3) 11/14/17 21:50 Eosinophils % (Manual) 0 % (0.0-4.3) 11/14/17 21:50 Basophils % (Manual) 0 % (0.0-1.8) 11/14/17 21:50 Metamyelocytes % 0 % 11/14/17 21:50 Myelocytes % 0 % 11/14/17 21:50 Promyelocytes % 0 % 11/14/17 21:50 Blast Cells % 0 % 11/14/17 21:50 Nucleated RBC % Not Reportable 11/14/17 21:50 Seg Neutrophils # Man 20.9 K/mm3 (1.8-7.7) H 11/14/17 21:50 Band Neutrophils # 2.4 K/mm3 11/14/17 21:50 Lymphocytes # (Manual) 2.4 K/mm3 (1.2-5.4) 11/14/17 21:50 Abs React Lymphs (Man) 0.0 K/mm3 11/14/17 21:50 Monocytes # (Manual) 0.8 K/mm3 (0.0-0.8) 11/14/17 21:50 Eosinophils # (Manual) 0.0 K/mm3 (0.0-0.4) 11/14/17 21:50 Basophils # (Manual) 0.0 K/mm3 (0.0-0.1) 11/14/17 21:50 Metamyelocytes # 0.0 K/mm3 11/14/17 21:50 Myelocytes # 0.0 K/mm3 11/14/17 21:50 Promyelocytes # 0.0 K/mm3 11/14/17 21:50 Blast Cells # 0.0 K/mm3 11/14/17 21:50 WBC Morphology Not Reportable 11/14/17 21:50 Hypersegmented Neuts Not Reportable 11/14/17 21:50 Hyposegmented Neuts Not Reportable 11/14/17 21:50 Hypogranular Neuts Not Reportable 11/14/17 21:50 Smudge Cells Not Reportable 11/14/17 21:50 Toxic Granulation Not Reportable 11/14/17 21:50 Toxic Vacuolation Not Reportable 11/14/17 21:50 Dohle Bodies Not Reportable 11/14/17 21:50 Pelger-Huet Anomaly Not Reportable 11/14/17 21:50 Lacho Rods Not Reportable 11/14/17 21:50 Platelet Estimate Appears normal 11/14/17 21:50 Clumped Platelets Not Reportable 11/14/17 21:50 Plt Clumps, EDTA Not Reportable 11/14/17 21:50 Large Platelets Few 11/14/17 21:50 Giant Platelets Not Reportable 11/14/17 21:50 Platelet Satelliting Not Reportable 11/14/17 21:50 Plt Morphology Comment Not Reportable 11/14/17 21:50 RBC Morphology Normal 11/14/17 21:50 Dimorphic RBCs Not Reportable 11/14/17 21:50 Polychromasia Not Reportable 11/14/17 21:50 Hypochromasia Not Reportable 11/14/17 21:50 Poikilocytosis Not Reportable 11/14/17 21:50 Anisocytosis Not Reportable 11/14/17 21:50 Microcytosis Not Reportable 11/14/17 21:50 Macrocytosis Not Reportable 11/14/17 21:50 Spherocytes Not Reportable 11/14/17 21:50 Pappenheimer Bodies Not Reportable 11/14/17 21:50 Sickle Cells Not Reportable 11/14/17 21:50 Target Cells Not Reportable 11/14/17 21:50 Tear Drop Cells Not Reportable 11/14/17 21:50 Ovalocytes Not Reportable 11/14/17 21:50 Helmet Cells Not Reportable 11/14/17 21:50 [place] Bodies Not Reportable 11/14/17 21:50 [place] Rings Not Reportable 11/14/17 21:50 Melba Cells Not Reportable 11/14/17 21:50 Bite Cells Not Reportable 11/14/17 21:50 Crenated Cell Not Reportable 11/14/17 21:50 Elliptocytes Not Reportable 11/14/17 21:50 Acanthocytes (Spur) Not Reportable 11/14/17 21:50 Rouleaux Not Reportable 11/14/17 21:50 Hemoglobin C Crystals Not Reportable 11/14/17 21:50 Schistocytes Not Reportable 11/14/17 21:50 Malaria parasites Not Reportable 11/14/17 21:50 ESR 23 mm/Hr (0-20) 11/14/17 23:31 Dm Bodies Not Reportable 11/14/17 21:50 Hem Pathologist Commnt No 11/14/17 21:50 PT 14.4 Sec. (12.2-14.9) 11/14/17 23:31 INR 1.06 (0.87-1.13) 11/14/17 23:31 POC ABG pH 7.413 (7.35-7.45) 11/14/17 23:21 POC ABG pCO2 28.4 (35-45) L 11/14/17 23:21 POC ABG pO2 75 (80-105) L 11/14/17 23:21 POC ABG HCO3 18.1 11/14/17 23:21 POC ABG Total CO2 19 11/14/17 23:21 POC ABG O2 Sat 95 11/14/17 23:21 POC ABG Base Excess -6 11/14/17 23:21 VBG pH 7.426 (7.320-7.420) H 11/14/17 21:50 FiO2 21 % 11/14/17 23:21 Sodium 136 mmol/L (137-145) L 11/14/17 21:50 Potassium 3.4 mmol/L (3.6-5.0) L 11/14/17 21:50 Chloride 94.9 mmol/L (98-107) L 11/14/17 21:50 Carbon Dioxide 22 mmol/L (22-30) 11/14/17 21:50 Anion Gap 23 mmol/L 11/14/17 21:50 BUN 8 mg/dL (9-20) L 11/14/17 21:50 Creatinine 0.9 mg/dL (0.8-1.5) 11/14/17 21:50 Estimated GFR > 60 ml/min 11/14/17 21:50 BUN/Creatinine Ratio 9 % 11/14/17 21:50 Glucose 146 mg/dL (75-100) H 11/14/17 21:50 Lactic Acid 1.60 mmol/L (0.7-2.0) 11/15/17 02:57 Calcium 8.9 mg/dL (8.4-10.2) 11/14/17 21:50 Total Bilirubin 1.30 mg/dL (0.1-1.2) H 11/14/17 23:31 Direct Bilirubin 0.4 mg/dL (0-0.2) H 11/14/17 23:31 Indirect Bilirubin 0.9 mg/dL 11/14/17 23:31 AST 31 units/L (5-40) 11/14/17 23:31 ALT 34 units/L (7-56) 11/14/17 23:31 Alkaline Phosphatase 80 units/L (35-129) 11/14/17 23:31 Total Creatine Kinase 114 units/L (55-170) 11/14/17 23:31 Troponin T < 0.010 ng/mL (0.00-0.029) 11/15/17 02:57 C-Reactive Protein 19.90 mg/dL (0.00-1.30) H 11/14/17 23:31 Total Protein 7.9 g/dL (6.3-8.2) 11/14/17 23:31 Albumin 3.8 g/dL (3.9-5) L 11/14/17 23:31 Albumin/Globulin Ratio 0.9 % 11/14/17 23:31 Urine Color [place] (Yellow) 11/14/17 23:26 Urine Turbidity Clear (Clear) 11/14/17 23:26 Urine pH 5.0 (5.0-7.0) 11/14/17 23:26 Ur Specific [place] 1.032 (1.003-1.030) H 11/14/17 23:26 Urine Protein 30 mg/dl mg/dL (Negative) 11/14/17 23:26 Urine Glucose (UA) Neg mg/dL (Negative) 11/14/17 23: Urine Ketones Neg mg/dL (Negative) 11/14/17 23: Urine Blood Neg (Negative) 11/14/17 23: Urine Nitrite Neg (Negative) 11/14/17 23: Urine Bilirubin Neg (Negative) 11/14/17 23: Urine Urobilinogen < 2.0 mg/dL (<2.0) 11/14/17 23: Ur Leukocyte Esterase Neg (Negative) 11/14/17 23:26 Urine WBC (Auto) 1.0 /HPF (0.0-6.0) 11/14/17 23: Urine RBC (Auto) 2.0 /HPF (0.0-6.0) 11/14/17 23: U Epithel Cells (Auto) < 1.0 /HPF (0-13.0) 11/14/17 23: Urine Mucus Few /HPF 11/14/17 23:26 Monoscreen Negative (Negative) 11/14/17 23:31 - Imaging and Cardiology Chest x-ray: image reviewed (right upper lobe consolidation) CT scan - chest: report reviewed (right upper lobe pneumonia, no PE)
[2017-11-15 13:49] LABS: Hematocrit 38.9 % (35.5-45.6); Hemoglobin 12.5 gm/dl (11.8-15.2); Mean Corpuscular HGB Conc 32 % (32-34); Mean Corpuscular Hemoglobin 24 pg (28-32); Mean Corpuscular Volume 75 fl (84-94); Platelet Count 229 K/mm3 (140-440); Red Blood Count 5.16 M/mm3 (3.65-5.03); Red Cell Distribution Width 15.8 % (13.2-15.2)
[2017-11-15 14:09] LABS: BUN/Creatinine Ratio 7; Blood Urea Nitrogen 5 mg/dL (9-20); Calcium 8.7 mg/dL (8.4-10.2); Hemolysis Index 3
[2017-11-15 14:50] LABS: Band Neutrophils # (Manual) 0.2 K/mm3; Basophils % (Manual) 0 % (0.0-1.8); Eosinophils % (Manual) 0 % (0.0-4.3); Total Cells Counted 200
[2017-11-15 14:51] LABS: Anisocytosis 1+; Hypochromasia Few; Platelet Estimate Consistent w Auto
[2017-11-15] MEDS: cefTRIAXone 2 GM in NACL 0.9% 20 ML IV SCH (16:25)
[2017-11-15] MEDS ORDERED: PROVENTIL IH PRN (16:27)
[2017-11-15] MEDS: DUONEB *Not for PRN Use IH SCH (21:19)
[2017-11-15] MEDS: LOVENOX SUB-Q SCH (23:44)
[2017-11-16] MEDS: DUONEB *Not for PRN Use IH SCH ×4 (02:30→20:10)
[2017-11-16 07:19] LABS: Basophils % (Auto) 0.3 % (0.0-1.8); Eosinophils % (Auto) 0.2 % (0.0-4.3); Hematocrit 38.5 % (35.5-45.6); Hemoglobin 12.5 gm/dl (11.8-15.2); Lymphocytes # (Auto) 3.4 K/mm3 (1.2-5.4); Lymphocytes % (Auto) 23.2 % (13.4-35.0); Mean Corpuscular HGB Conc 32 % (32-34); Mean Corpuscular Volume 77 fl (84-94); Monocytes # (Auto) 0.8 K/mm3 (0.0-0.8); Monocytes % (Auto) 5.4 % (0.0-7.3); Platelet Count 225 K/mm3 (140-440); Red Blood Count 5.02 M/mm3 (3.65-5.03); Red Cell Distribution Width 15.9 % (13.2-15.2)
[2017-11-16 07:30] LABS: Mean Corpuscular Hemoglobin 25 pg (28-32)
[2017-11-16 07:39] LABS: BUN/Creatinine Ratio 6; Blood Urea Nitrogen 4 mg/dL (9-20); Calcium 8.9 mg/dL (8.4-10.2); Hemolysis Index 6
--- NOTE | 2017-11-16 10:41 | Progress Note ---
Assessment and Plan - Patient Problems (1) Pneumonia Current Visit: Yes Status: Acute Qualifiers: Pneumonia type: due to unspecified organism Laterality: right Lung location: upper lobe of lung Qualified Code(s): J18.1 - Lobar pneumonia, unspecified organism Plan to address problem: Cont IV Levaquin and IV Rocephin . (2) Leukocytosis Current Visit: Yes Status: Acute Qualifiers: Leukocytosis type: unspecified Qualified Code(s): D72.829 - Elevated white blood cell count, unspecified Plan to address problem: Secondary to pneumonia (3) SIRS (systemic inflammatory response syndrome) Current Visit: Yes Status: Acute Plan to address problem: patient has leukocytosis and high fever consistent with SIRS (4) Hypokalemia Current Visit: Yes Status: Acute Plan to address problem: supplemented (5) Pleurisy Current Visit: Yes Status: Acute Plan to address problem: Sec to pneumonia.Improving. (6) DVT prophylaxis Current Visit: Yes Status: Acute Plan to address problem: on Lovenox Subjective Date of service: 11/16/17 Principal diagnosis: RUL Pneumonia Interval history: Symptomatically better Right sided chest pain improved. Objective - Constitutional Vitals: Vital Signs - 12hr 11/16/17 11/16/17 11/16/17 00:59 02:00 02:25 Temperature 100.7 F H 97.8 F Pulse Rate 101 H Pulse Rate [ 81 Anterior Bilateral Throughout] Respiratory 20 Rate Respiratory 20 Rate [Anterior Bilateral Throughout] Blood Pressure Blood Pressure 139/96 [Left] O2 Sat by Pulse Oximetry 11/16/17 11/16/17 11/16/17 02:35 06:05 07:59 Temperature 98.4 F 98.7 F Pulse Rate 93 H 108 H Pulse Rate [ 80 Anterior Bilateral Throughout] Respiratory 20 20 Rate Respiratory 20 Rate [Anterior Bilateral Throughout] Blood Pressure 143/96 159/108 Blood Pressure [Left] O2 Sat by Pulse 94 93 Oximetry 11/16/17 11/16/17 11/16/17 08:00 08:38 09:00 Temperature Pulse Rate Pulse Rate [ 73 77 Anterior Bilateral Throughout] Respiratory Rate Respiratory 15 22 Rate [Anterior Bilateral Throughout] Blood Pressure Blood Pressure [Left] O2 Sat by Pulse 99 Oximetry General appearance: Present: no acute distress, well-nourished - EENT Eyes: PERRL, EOM intact ENT: hearing intact, clear oral mucosa Ears: bilateral: normal - Neck Neck: supple, normal ROM - Respiratory Respiratory effort: normal Respiratory: right: rales, bilateral: CTA - Breasts Breasts: normal - Cardiovascular Rhythm: regular Heart Sounds: Present: S1 & S2. Absent: gallop, rub Extremities: no ischemia, pulses intact, No edema, normal color, Full ROM - Gastrointestinal General gastrointestinal: Present: soft, non-tender, non-distended, normal bowel sounds - Genitourinary Male genitourinary: normal - Integumentary Integumentary: clear, warm, dry - Musculoskeletal Musculoskeletal: 1, strength equal bilaterally - Neurologic Neurologic: moves all extremities - Psychiatric Psychiatric: memory intact, appropriate mood/affect, intact judgment & insight - Allied health notes Allied health notes reviewed: nursing, case management - Labs CBC & Chem 7: 11/16/17 06:14 11/16/17 06:14 Labs: Abnormal lab results 11/15/17 11/15/17 11/15/17 Range/Units 13:16 13:16 13:16 WBC 24.2 H (4.5-11.0) K/mm3 RBC 5.16 H (3.65-5.03) M/mm3 MCV 75 L (84-94) fl MCH 24 L (28-32) pg RDW 15.8 H (13.2-15.2) % Seg Neutrophils % (40.0-70.0) % Seg Neuts % (Manual) 83.0 H (40.0-70.0) % Lymphocytes % (Manual) 13.0 L (13.4-35.0) % Seg Neutrophils # (1.8-7.7) K/mm3 Seg Neutrophils # Man 20.1 H (1.8-7.7) K/mm3 Sodium (137-145) mmol/L Chloride 97.2 L (98-107) mmol/L BUN 5 L (9-20) mg/dL Creatinine 0.7 L (0.8-1.5) mg/dL Glucose 115 H (75-100) mg/dL C-Reactive Protein 23.50 H (0.00-1.30) mg/dL 11/16/17 11/16/17 Range/Units 06:14 06:14 WBC 14.6 H (4.5-11.0) K/mm3 RBC (3.65-5.03) M/mm3 MCV 77 L (84-94) fl MCH 25 L (28-32) pg RDW 15.9 H (13.2-15.2) % Seg Neutrophils % 70.9 H (40.0-70.0) % Seg Neuts % (Manual) (40.0-70.0) % Lymphocytes % (Manual) (13.4-35.0) % Seg Neutrophils # 10.3 H (1.8-7.7) K/mm3 Seg Neutrophils # Man (1.8-7.7) K/mm3 Sodium 136 L (137-145) mmol/L Chloride 95.0 L (98-107) mmol/L BUN 4 L (9-20) mg/dL Creatinine 0.7 L (0.8-1.5) mg/dL Glucose 108 H (75-100) mg/dL C-Reactive Protein (0.00-1.30) mg/dL
[2017-11-16] MEDS: LEVAQUIN 750MG/150ML 750 MG/150 ML BAG IV SCH (10:58)
[2017-11-16] MEDS: cefTRIAXone 2 GM in NACL 0.9% 20 ML IV SCH (16:12)
[2017-11-16] MEDS: NORCO 5/325 PO PRN ×2 (16:23→21:50)
[2017-11-16] MEDS: LOVENOX SUB-Q SCH (21:49)
[2017-11-16] MEDS: GUAIFENESIN DM SYRUP PO PRN (21:49)
[2017-11-17] MEDS ORDERED: MOTRIN PO PRN (06:40)
[2017-11-17 07:38] VITALS: BP 145/99
[2017-11-17] MEDS ORDERED: DUONEB *Not for PRN Use IH SCH (08:00)
--- NOTE | 2017-11-17 09:08 | Progress Note ---
Assessment and Plan Assessment: 1) Sepsis: better, fever resolved, leukocytosis improving, lactate normal. Etiology most likely pneumonia. CRP=22. 2) Right sided pneumonia: likely CAP. HIV negative. Plan: -check influenza antigen PCR in nasopharinx -f/u Legionella urine antigen, Streptococcus pneumoniae urine antigen, Mycoplasma serology, Chlamydia pneumophila serology -continue ceftriaxone and levaquin - day 4 of 7 -If clinically better ok to d/c on levaquin 750 m po qday total [address] Warren for your consultation, will follow up with you. Yumiko Dong NP for Dr Frazier Infectious Diseases Specialist [facility] ([facility]) M [phone] O [phone] Subjective Date of service: 11/17/17 Principal diagnosis: pneumonia Interval history: Patient feels better, coughing is minimal, no chest pain. Current Antimicrobials: Ceftriaxone 11/15 Levaquin 11/15 Previous Antimicrobials: Microbiology: Blood cultures: 11/14 neg Urine cultures: Respiratory cultures: Objective - Exam Narrative Exam: General appearance: Alert in NAD, conversant Eyes: anicteric sclerae, moist conjunctivae; no lid-lag; PERRLA HENT: Atraumatic; oropharynx clean Neck: Trachea midline; supple, no thyromegaly or lymphadenopathy Lungs: Crackles CV: RRR Abdomen: Soft, non-tender; no masses or hepatosplenomegaly Extremities: No peripheral edema or extremity lymphadenopathy Skin: Normal temperature, turgor and texture; no rash, ulcers or subcutaneous nodules Psych: Appropriate affect, alert and oriented to person, place and time. Neuro: alert and oriented x 3. Moving all extermities Lines: - Constitutional Vitals: Vital Signs Temp Pulse Resp BP Pulse Ox 99.8 F H 94 H 18 145/99 94 11/17/17 07:34 11/17/17 08:07 11/17/17 08:07 11/17/17 07:34 11/17/17 07:58 Temperature -Last 24 Hours Temperature 99.8 F Temperature 98.7 F Temperature 98.7 F Temperature 98.9 F - Labs CBC & Chem 7: 11/16/17 06:14 11/16/17 06:14
[2017-11-17] MEDS: LEVAQUIN 750MG/150ML 750 MG/150 ML BAG IV SCH (09:35)
--- NOTE | 2017-11-17 11:28 | Discharge Summary ---
Providers - Providers Date of Admission: 11/14/17 23:08 Date of discharge: 11/17/17 Attending physician: WALESKA MONET 11/15/17 07:12 Consult to Physician [CONS] Routine Consulting Provider: MUNA LANCASTER Reason For Exam: Pneumonia Place consult to:: DR. DUKES Notified:: A.S Phone number called:: IN HOUSE Was contact made?: Yes If yes, spoke with:: DR. DUKES Time called:: 10:54 Primary care physician: CONSTRUCTION ENGINEER Hospitalization Condition: Stable Pertinent studies: Chest CT and X-ray showed right upper lobe pneumonia Hospital course: 37-year-old -[place] male with no significant past medical history comes in for fever cough and right chest pain with inspiration.. All the symptoms started last nigh around 2 AM. Also has fever and chills and shortness of breath. Also has muscle aches.cough or a mucoid sputum to yellow sputum. No recent travel. Patient was treated with antitussives, antibiotics and bronchodilators after which his sepsis improved and he became medically stable. He was also prescribed analgesics and received DVT prophylaxis with Lovenox. Patient had an acute gout flareup and was discharged with Colchicine and prednisone. Discharge diagnoses Pneumonia Leukocytosis SIRS Hypokalemia Pleurisy DVT prophylaxis Disposition: - TO HOME OR SELFCARE Time spent for discharge: 32 mins Core Measure Documentation - Palliative Care Palliative Care/ Comfort Measures: Not Applicable - Core Measures Any of the following diagnoses?: none Exam - Constitutional Vitals: Temp Pulse Resp BP Pulse Ox 99.8 F H 94 H 18 145/99 94 11/17/17 07:34 11/17/17 08:07 11/17/17 08:07 11/17/17 07:34 11/17/17 07:58 General appearance: Present: no acute distress, well-nourished - EENT Eyes: Present: PERRL ENT: hearing intact, clear oral mucosa - Neck Neck: Present: supple, normal ROM - Respiratory Respiratory effort: normal Respiratory: bilateral: CTA - Cardiovascular Heart Sounds: Present: S1 & S2. Absent: rub, click - Extremities Extremities: pulses symmetrical, No edema Peripheral Pulses: within normal limits - Abdominal General gastrointestinal: Present: soft, non-tender, non-distended Male genitourinary: Present: deferred - Rectal Rectal Exam: deferred - Integumentary Integumentary: Present: clear, warm, dry - Musculoskeletal Musculoskeletal: gait normal, strength equal bilaterally - Psychiatric Psychiatric: appropriate mood/affect, intact judgment & insight - Neurologic Neurologic: CNII-XII intact, moves all extremities Plan Activity: advance as tolerated, fall precautions Diet: low fat, low cholesterol, low salt Follow up with: PRIMARY CARE,MD [Primary Care Provider] - 3-5 Days Prescriptions: Colchicine [Colcrys] 0.6 mg PO BID #10 tab Levofloxacin [Levaquin] 750 mg PO QDAY #8 tablet predniSONE [Deltasone] 10 mg PO QDAY #5 tab
[2017-11-18] MEDS ORDERED: LEVAQUIN PO SCH (10:00)
== END 2017-11-17 14:30 | disposition home or self-care (01) | DRG 871 ==
LOC: ED 18:13 → 3A 23:08
PROVIDERS: ADMIT Internal Medicine; ATTEND Internal Medicine
DX: A41.9 Sepsis, unspecified organism (principal); J18.9 Pneumonia, unspecified organism; E87.1 Hypo-osmolality and hyponatremia; R09.1 Pleurisy; E87.6 Hypokalemia; Z82.49 Family history of ischemic heart disease and other diseases of the circulatory system; Z87.01 Personal history of pneumonia (recurrent); Z79.899 Other long term (current) drug therapy
CPT/HCPCS: 36415; 71046; 71275; 80048; 80074; 81001; 82140; 82550; 82803; 82805; 84484; 85007; 85025; 85610; 85652; 86140; 86308; 87040; 87449; 87806; 93005; 93010; 94640; 94760; 96365; 96366; 96372; 96375; J0456; J0696; J1650; J1956; J2270; J7030; J7050; Q0162; Q9967

== ENCOUNTER 2021-01-30 05:11 | Emergency (ER) | payer OTHER ==
[2021-01-30 06:17] VITALS: BP 168/121
== END 2021-01-30 08:53 | disposition left against medical advice (07) ==
LOC: ED 05:11
DX: M54.9 Dorsalgia, unspecified (principal); Z53.21 Procedure and treatment not carried out due to patient leaving prior to being seen by health care provider

== ENCOUNTER 2022-04-15 15:27 | Inpatient (IN) | payer OTHER ==
--- NOTE | 2022-04-15 18:36 | Emergency Department Report ---
ED General Adult HPI - General Chief complaint: Altered Mental Status Stated complaint: I have been feeling unsteady and off Time Seen by Provider: 04/15/22 18:34 Source: patient, EMS ( EMS documentation not available at time of chart dictation ), RN notes reviewed Mode of arrival: Stretcher Limitations: Physical Limitation - History of Present Illness Initial comments: The patient was evaluated in the emergency department for symptoms described in the history of present illness. He/she was evaluated in the context of the global COVID-19 pandemic, which necessitated consideration that the patient might be at risk for infection with the virus that causes COVID-19. Institutional protocols and algorithms that pertain to the evaluation of patients at risk for COVID-19 are in a state of rapid change based on information released by regulatory bodies including the CDC and federal and state organizations. These policies and algorithms were followed during the patient's care in the emergency department. Please note that these policies, procedures and recommendations changed on a rapid basis. This patient is a pleasant and cooperative 42-year-old gentleman, who presents to the ER today with a EMS with a complaint of feeling unsteady on his feet for a few days, and intermittent bizarre behavior. He denies physical pain. He is not homicidal suicidal. He denies recreational drug use. He denies loss of vision. Apparently lifted up a stepstool, and attempted to drink water from it, mistakingly believing that it is water. Patient currently denies headache, neck pain, chest pain, abdominal pain, shortness of breath, nausea, vomiting and diarrhea. He does endorse occasional alcohol consumption. -: days(s) Consistency: intermittent Improves with: rest Worsens with: other (Unsteadiness worsens when attempting to walk) - Related Data Previous Rx's Medication Instructions Recorded Last Taken Type HYDROcodone/APAP 5-325 [[place] 1 each PO Q6HR PRN #15 tablet 09/16/16 Unknown Rx 5-325 mg TAB] Colchicine [Colcrys] 0.6 mg PO BID #10 tab 11/17/17 Unknown Rx levoFLOXacin [Levaquin] 750 mg PO QDAY #8 tablet 11/17/17 Unknown Rx predniSONE 10 mg PO QDAY #5 tab 11/17/17 Unknown Rx Allergies Allergy/AdvReac Type Severity Reaction Status Date / Time No Known Allergies Allergy Unverified 09/14/15 00:36 ED Review of Systems ROS: Stated complaint: AMS X 2 DAYS Other details as noted in HPI Constitutional: malaise. denies: fever Eyes: denies: eye discharge, vision change ENT: denies: epistaxis Respiratory: denies: cough Cardiovascular: denies: chest pain Gastrointestinal: denies: abdominal pain, hematemesis, melena, hematochezia Genitourinary: denies: dysuria Neurological: weakness, abnormal gait. denies: numbness, paresthesias Psychiatric: denies: homicidal thoughts, suicidal thoughts ED Past Medical Hx - Past Medical History Hx Hypertension: Yes Hx Congestive Heart Failure: No Hx Diabetes: No Hx Asthma: No Hx COPD: No Additional medical history: Pneumonia several years ago, vertigo - Surgical History Additional Surgical History: right hand tendon surgery - Social History Smoking Status: Unknown if ever smoked - Medications Home Medications: Home Medications Medication Instructions Recorded Confirmed Last Taken Type HYDROcodone/APAP 5-325 [[place] 1 each PO Q6HR PRN #15 tablet 09/16/16 Unknown Rx 5-325 mg TAB] Colchicine [Colcrys] 0.6 mg PO BID #10 tab 11/17/17 Unknown Rx levoFLOXacin [Levaquin] 750 mg PO QDAY #8 tablet 11/17/17 Unknown Rx predniSONE 10 mg PO QDAY #5 tab 11/17/17 Unknown Rx ED Physical Exam - General Limitations: Physical Limitation General appearance: alert, in no apparent distress - Head Head exam: Present: atraumatic, normocephalic - Eye Eye exam: Present: normal appearance, PERRL, EOMI, other (Visual acuity intact to finger counting, color perception, reading at a close distance). Absent: nystagmus - ENT ENT exam: Present: normal exam, normal orophraynx, mucous membranes moist, normal external ear exam - Neck Neck exam: Present: normal inspection, full ROM. Absent: tenderness, meningismus - Respiratory Respiratory exam: Present: normal lung sounds bilaterally. Absent: respiratory distress, wheezes, rales, rhonchi, stridor, decreased breath sounds - Cardiovascular Cardiovascular Exam: Present: normal rhythm, tachycardia, normal heart sounds. Absent: bradycardia, irregular rhythm, systolic murmur, diastolic murmur, rubs, gallop - GI/Abdominal GI/Abdominal exam: Present: soft. Absent: distended, tenderness, guarding, rebound, rigid, pulsatile mass - Rectal Rectal exam: Present: deferred - Extremities Exam Extremities exam: Present: normal inspection, full ROM, other (2+ pulses noted in the bilateral upper and lower extremities. There is no palpable cord. negative Homans sign. Muscular compartments are soft. The pelvis is stable.). Absent: pedal edema, calf tenderness - Back Exam Back exam: Present: normal inspection. Absent: tenderness, CVA tenderness (R), CVA tenderness (L), paraspinal tenderness, vertebral tenderness - Neurological Exam Neurological exam: Present: alert, oriented X3, abnormal gait (Positive Romberg examination. Unable to perform tandem gait. [id number] within normal limits. No upper extremity past-pointing), other (There is no facial droop. The tongue is midline. EOMI. 5 out of 5 strength in 4 extremities. Sensation is intact to light touch in 4 extremities). Absent: motor sensory deficit - Psychiatric Psychiatric exam: Present: anxious. Absent: homicidal ideation, suicidal ideation - Skin Skin exam: Present: warm, dry, intact, normal color. Absent: rash ED Course Vital Signs 04/15/22 19:42 Temperature 98.1 F Pulse Rate 103 H Respiratory 16 Rate Blood Pressure 134/94 [Right] O2 Sat by Pulse 96 Oximetry - Reevaluation(s) Reevaluation #1: 04/15/22 19:59 Differential diagnosis, include but not limited to: Warnicke's encephalopathy, subacute stroke, electrolyte derangement, thyroid derangement Assessment and plan: 42-year-old gentleman, who is afebrile, with reassuring vital signs with exception of tachycardia, who presents more than 24 hours after his last known well time. Therefore, tPA is not indicated. Therefore, emergent CT angiogram head and neck not indicated. I suspect Warnicke's enc ephalopathy, given transaminitis, tachycardia, history of bizarre behavior, and unsteady gait. At the moment, patient is currently awake, alert, oriented, sober, of sound mind, not homicidal, not suicidal, he does not exhibit any findings that would require 1013 or involuntary confinement. He will be placed on a hall monitor, alcohol withdrawal protocol will be initiated, high-dose thiamine, as well as banana bag will be ordered, noncontrast CT scan of the brain is pending, and if no contraindications we will start aspirin therapy. Have counseled patient that we plan to admit him to the medical service for unsteady gait to exclude subacute stroke versus Warnicke's encephalopathy. Patient is agreeable to the plan of care. Reassess. 04/15/22 20:21 CT scan of the brain negative for acute findings. Elevated ammonia level of 70 reviewed and appreciated. Aspirin ordered. Lactulose ordered. The patient is not acutely cephalopathic at this time. 04/15/22 21:37 Dr Alberto Valero to admit to [facility] Explained all findings and diagnostic concerns with patient and family, who articulated understanding. ED Medical Decision Making - Lab Data Result diagrams: 04/15/22 18:55 04/15/22 18:55 Vital Signs 04/15/22 19:42 Temperature 98.1 F Pulse Rate 103 H Respiratory 16 Rate Blood Pressure 134/94 [Right] O2 Sat by Pulse 96 Oximetry Lab Results 04/15/22 04/15/22 04/15/22 Range/Units 18:54 18:55 18:55 WBC 8.7 (4.5-11.0) K/mm3 RBC 5.44 H (3.65-5.03) M/mm3 Hgb 13.5 (11.8-15.2) gm/dl Hct 41.7 (35.5-45.6) % MCV 77 L (84-94) fl MCH 25 L (28-32) pg MCHC 32 (32-34) % RDW 14.3 (13.2-15.2) % Plt Count 211 (140-440) K/mm3 Lymph % (Auto) 31.2 (13.4-35.0) % [place] % (Auto) 7.7 H (0.0-7.3) % Eos % (Auto) 0.0 (0.0-4.3) % Baso % (Auto) 0.5 (0.0-1.8) % Lymph # (Auto) 2.7 (1.2-5.4) K/mm3 [place] # (Auto) 0.7 (0.0-0.8) K/mm3 Eos # (Auto) 0.0 (0.0-0.4) K/mm3 Baso # (Auto) 0.0 (0.0-0.1) K/mm3 Seg Neutrophils % 60.6 (40.0-70.0) % Seg Neutrophils # 5.3 (1.8-7.7) K/mm3 PT 13.6 (12.2-14.9) Sec. INR 0.94 (0.87-1.13) APTT 30.9 (24.2-36.6) Sec. Sodium (137-145) mmol/L Potassium (3.6-5.0) mmol/L Chloride (98-107) mmol/L Carbon Dioxide (22-30) mmol/L Anion Gap mmol/L BUN (9-20) mg/dL Creatinine (0.8-1.3) mg/dL Estimated GFR ml/min BUN/Creatinine Ratio % Glucose (75-100) mg/dL Calcium (8.4-10.2) mg/dL Total Bilirubin (0.1-1.2) mg/dL AST (5-40) units/L ALT (7-56) units/L Alkaline Phosphatase (35-129) units/L Total Creatine Kinase (55-170) units/L Troponin T (0.00-0.029) ng/mL Total Protein (6.3-8.2) g/dL Albumin (3.9-5) g/dL Albumin/Globulin Ratio % TSH 1.650 (0.270-4.200) mlU/mL Salicylates (2.8-20.0) mg/dL Acetaminophen (10.0-30.0) ug/mL Plasma/Serum Alcohol (0-0.07) % 04/15/22 04/15/22 04/15/22 Range/Units 18:55 18:55 18:55 WBC (4.5-11.0) K/mm3 RBC (3.65-5.03) M/mm3 Hgb (11.8-15.2) gm/dl Hct (35.5-45.6) % MCV (84-94) fl MCH (28-32) pg MCHC (32-34) % RDW (13.2-15.2) % Plt Count (140-440) K/mm3 Lymph % (Auto) (13.4-35.0) % [place] % (Auto) (0.0-7.3) % Eos % (Auto) (0.0-4.3) % Baso % (Auto) (0.0-1.8) % Lymph # (Auto) (1.2-5.4) K/mm3 [place] # (Auto) (0.0-0.8) K/mm3 Eos # (Auto) (0.0-0.4) K/mm3 Baso # (Auto) (0.0-0.1) K/mm3 Seg Neutrophils % (40.0-70.0) % Seg Neutrophils # (1.8-7.7) K/mm3 PT (12.2-14.9) Sec. INR (0.87-1.13) APTT (24.2-36.6) Sec. Sodium 141 (137-145) mmol/L Potassium 4.2 (3.6-5.0) mmol/L Chloride 104.0 (98-107) mmol/L Carbon Dioxide 21 L (22-30) mmol/L Anion Gap 20 mmol/L BUN 11 (9-20) mg/dL Creatinine 1.1 (0.8-1.3) mg/dL Estimated GFR > 60 ml/min BUN/Creatinine Ratio 10 % Glucose 109 H (75-100) mg/dL Calcium 10.2 (8.4-10.2) mg/dL Total Bilirubin 0.50 (0.1-1.2) mg/dL AST 46 H (5-40) units/L ALT 59 H (7-56) units/L Alkaline Phosphatase 68 (35-129) units/L Total Creatine Kinase 331 H (55-170) units/L Troponin T < 0.010 (0.00-0.029) ng/mL Total Protein 8.6 H (6.3-8.2) g/dL Albumin 5.0 (3.9-5) g/dL Albumin/Globulin Ratio 1.4 % TSH (0.270-4.200) mlU/mL Salicylates < 0.3 L (2.8-20.0) mg/dL Acetaminophen 5.0 L (10.0-30.0) ug/mL Plasma/Serum Alcohol (0-0.07) % 04/15/22 Range/Units 18:55 WBC (4.5-11.0) K/mm3 RBC (3.65-5.03) M/mm3 Hgb (11.8-15.2) gm/dl Hct (35.5-45.6) % MCV (84-94) fl MCH (28-32) pg MCHC (32-34) % RDW (13.2-15.2) % Plt Count (140-440) K/mm3 Lymph % (Auto) (13.4-35.0) % [place] % (Auto) (0.0-7.3) % Eos % (Auto) (0.0-4.3) % Baso % (Auto) (0.0-1.8) % Lymph # (Auto) (1.2-5.4) K/mm3 [place] # (Auto) (0.0-0.8) K/mm3 Eos # (Auto) (0.0-0.4) K/mm3 Baso # (Auto) (0.0-0.1) K/mm3 Seg Neutrophils % (40.0-70.0) % Seg Neutrophils # (1.8-7.7) K/mm3 PT (12.2-14.9) Sec. INR (0.87-1.13) APTT (24.2-36.6) Sec. Sodium (137-145) mmol/L Potassium (3.6-5.0) mmol/L Chloride (98-107) mmol/L Carbon Dioxide (22-30) mmol/L Anion Gap mmol/L BUN (9-20) mg/dL Creatinine (0.8-1.3) mg/dL Estimated GFR ml/min BUN/Creatinine Ratio % Glucose (75-100) mg/dL Calcium (8.4-10.2) mg/dL Total Bilirubin (0.1-1.2) mg/dL AST (5-40) units/L ALT (7-56) units/L Alkaline Phosphatase (35-129) units/L Total Creatine Kinase (55-170) units/L Troponin T (0.00-0.029) ng/mL Total Protein (6.3-8.2) g/dL Albumin (3.9-5) g/dL Albumin/Globulin Ratio % TSH (0.270-4.200) mlU/mL Salicylates (2.8-20.0) mg/dL Acetaminophen (10.0-30.0) ug/mL Plasma/Serum Alcohol 0.03 (0-0.07) % - EKG Data -: EKG Interpreted by Dc EKG shows normal: sinus rhythm Rate: tachycardia - EKG Data 04/15/22 19:56 EKG is interpreted at 18: 27 Sinus rhythm, tachycardia, rate 106 bpm. Left axis deviation. Left anterior fascicular block. Left ventricular hypertrophy. Normal P wave axis. QTC 507 ms. This is an abnormal EKG. This is not a STEMI - Radiology Data Radiology results: pending, report reviewed, image reviewed CT HEAD WITHOUT CONTRAST INDICATION / CLINICAL INFORMATION: Altered Mental Status ataxia. TECHNIQUE: All CT scans at this location are performed using CT dose reduction for ALARA by means of automated exposure control. COMPARISON: None available. FINDINGS: HEMORRHAGE: No evidence of intracranial hemorrhage or extra-axial fluid collection. EXTRA-AXIAL SPACES: Cortical sulci, sylvian fissures and basilar cisterns have an unremarkable appearance. VENTRICULAR SYSTEM: The third and lateral ventricles are of normal size and configuration. CEREBRAL PARENCHYMA: No areas of abnormal brain parenchymal attenuation are identified. There is no indication of recent infarction. MIDLINE SHIFT OR HERNIATION: There is no mass effect. CEREBELLUM / BRAINSTEM: Brainstem and cerebellum have an unremarkable appearance. MIDLINE STRUCTURES:No abnormalities of the pituitary gland or pineal region are identified. INTRACRANIAL VESSELS:No abnormalities are identified on this noncontrast head CT. ORBITS: visualized portions of the orbits have an unremarkable appearance. SOFT TISSUES of HEAD: No significant abnormality. CALVARIUM: Evaluation of bone windows reveals no abnormalities. PARANASAL SINUSES / MASTOID AIR CELLS: Visualized portions of the paranasal sinuses are free from inflammatory mucosal disease. Mastoid air cells are normally pneumatized. ADDITIONAL FINDINGS: None. IMPRESSION: 1. No significant intracranial abnormality identified on head CT without contrast.. Signer Name: Antonio Restrepo MD Signed: 04/15/2022 7:13 PM Workstation Name: [id number] Critical care attestation.: If time is entered above; I have spent that time in minutes in the direct care of this critically ill patient, excluding procedure time. ED Disposition Clinical Impression: Transaminitis, Unsteady gait, Hyperammonemia Disposition: ADMITTED INPATIENT Is pt being admited?: Yes Does the pt Need Aspirin: No Condition: Good Referrals: PRIMARY CARE, [Primary Care Provider] - 3-5 Days
[2022-04-15 19:16] LABS: Basophils % (Auto) 0.5 % (0.0-1.8); Hematocrit 41.7 % (35.5-45.6); Hemoglobin 13.5 gm/dl (11.8-15.2); Lymphocytes # (Auto) 2.7 K/mm3 (1.2-5.4); Lymphocytes % (Auto) 31.2 % (13.4-35.0); Mean Corpuscular HGB Conc 32 % (32-34); Mean Corpuscular Volume 77 fl (84-94); Monocytes # (Auto) 0.7 K/mm3 (0.0-0.8); Monocytes % (Auto) 7.7 % (0.0-7.3); Platelet Count 211 K/mm3 (140-440); Red Blood Count 5.44 M/mm3 (3.65-5.03); Red Cell Distribution Width 14.3 % (13.2-15.2)
[2022-04-15 19:28] LABS: INR 0.94 (0.87-1.13)
[2022-04-15 19:29] LABS: Partial Thromboplastin Time 30.9 Sec. (24.2-36.6)
[2022-04-15 19:44] LABS: Alanine Aminotransferase 59 units/L (7-56); BUN/Creatinine Ratio 10; Blood Urea Nitrogen 11 mg/dL (9-20); Calcium 10.2 mg/dL (8.4-10.2); Hemolysis Index 17
[2022-04-15] MEDS ORDERED: THIAMINE 500 MG in SODIUM CHLORIDE 0.9% 50 ML IV ONE (19:52)
[2022-04-15] MEDS ORDERED: THIAMINE 100 MG, FOLIC ACID 1 MG, MULTIPLE VITAMIN INJ, ADULT 10 ML in SODIUM CHLORIDE ... IV ONE (19:53)
[2022-04-15] MEDS ORDERED: chlordiazePOXIDE 25 MG CAP PO PRN (19:53)
[2022-04-15] MEDS ORDERED: LORazepam 2 MG/ML VIAL IV PRN ×3 (19:53)
--- NOTE | 2022-04-15 20:17 | Cat Scan Report ---
CT HEAD WITHOUT CONTRAST INDICATION / CLINICAL INFORMATION: Altered Mental Status ataxia. TECHNIQUE: All CT scans at this location are performed using CT dose reduction for ALARA by means of automated e xposure control. COMPARISON: None available. FINDINGS: HEMORRHAGE: No evidence of intracranial hemorrhage or extra-axial fluid collection. EXTRA-AXIAL SPACES: Cortical sulci, sylvian fissures and basilar cisterns have an unremarkable appear ance. VENTRICULAR SYSTEM: The third and lateral ventricles are of normal size and configuration. CEREBRAL PARENCHYMA: No areas of abnormal brain parenchymal attenuation are identified. There is no i ndication of recent infarction. MIDLINE SHIFT OR HERNIATION: There is no mass effect. CEREBELLUM / BRAINSTEM: Brainstem and cerebellum have an unremarkable appearance. MIDLINE STRUCTURES:No abnormalities of the pituitary gland or pineal region are identified. INTRACRANIAL VESSELS:No abnormalities are identified on this noncontrast head CT. ORBITS: visualized portions of the orbits have an unremarkable appearance. SOFT TISSUES of HEAD: No significant abnormality. CALVARIUM: Evaluation of bone windows reveals no abnormalities. PARANASAL SINUSES / MASTOID AIR CELLS: Visualized portions of the paranasal sinuses are free from inf lammatory mucosal disease. Mastoid air cells are normally pneumatized. ADDITIONAL FINDINGS: None. IMPRESSION: 1. No significant intracranial abnormality identified on head CT without contrast.. Signer Name: Antonio Restrepo MD Signed: 04/15/2022 8:13 PM Workstation Name: [id number]
[2022-04-15] MEDS ORDERED: ASPIRIN 81 MG TAB CHEW PO ONE (20:20)
[2022-04-15] MEDS ORDERED: LACTULOSE 20 GM/30 ML ORAL LIQD PO ONE (20:20)
[2022-04-15] MEDS ORDERED: IBUPROFEN 600 MG TAB PO PRN (22:28)
[2022-04-15] MEDS ORDERED: MAGNESIUM HYDROXIDE (MOM) ORAL LIQD UDC PO PRN ×2 (22:28)
[2022-04-15] MEDS ORDERED: METOCLOPRAMIDE 10 MG TAB PO PRN (22:28)
[2022-04-15] MEDS ORDERED: ACETAMINOPHEN 325 MG TAB PO PRN (22:28)
[2022-04-15] MEDS ORDERED: ONDANSETRON 4 MG/2 ML INJ IV PRN ×2 (22:28)
[2022-04-15] MEDS ORDERED: MORPHINE 2 MG/1 ML INJ IV PRN ×2 (22:28)
[2022-04-15] MEDS ORDERED: MORPHINE 4 MG/1 ML INJ IV PRN ×2 (22:28)
[2022-04-15] MEDS ORDERED: PROMETHAZINE 25 MG RECT SUPP PR PRN (22:28)
--- NOTE | 2022-04-15 22:51 | History and Physical Report ---
History of Present Illness Date of examination: 04/15/22 Date of admission: 04/15/2022 Chief complaint: Unsteady Gait History of present illness: 42-year-old -[place] male with significant past medical history of hypertension presenting to the emergency room today with a complaint of unsteady gait. Unsteady gait was said to have started a few days ago which is accompanied by occasional periods of confusion. Patient denies any headache or dizziness and denies any diaphoresis. He denies any fever or chills, no chest pain or shortness of breath. He denies use of any illicit drugs. He however drinks alcohol almost on a daily basis. He has not had any alcohol in about 24 hours. who was by the bedside also indicates that patient has had periods of bizarre and unusual behavior over the past few days. Work-up in the emergency room today, lab reveals a slightly elevated liver enzymes, ammonia level and creatinine kinase. CT scan of the head was unremarkable. Patient is being admitted for evaluation of unsteady gait-we will rule out possible CVA. We will also rule out for possible alcohol withdrawal. Past History Past Medical History: hypertension, other (Pneumonia in the past) Past Surgical History: Other (Right hand tendon surgery) Social history: alcohol abuse Family history: no significant family history Medications and Allergies Allergies Allergy/AdvReac Type Severity Reaction Status Date / Time No Known Allergies Allergy Unverified 09/14/15 00:36 Home Medications Medication Instructions Recorded Confirmed Last Taken Type HYDROcodone/APAP 5-325 [[place] 1 each PO Q6HR PRN #15 tablet 09/16/16 Unknown Rx 5-325 mg TAB] Colchicine [Colcrys] 0.6 mg PO BID #10 tab 11/17/17 Unknown Rx levoFLOXacin [Levaquin] 750 mg PO QDAY #8 tablet 11/17/17 Unknown Rx predniSONE 10 mg PO QDAY #5 tab 11/17/17 Unknown Rx Active Meds: Active Medications Acetaminophen (Acetaminophen 325 Mg Tab) 650 mg PO Q4H PRN PRN Reason: Pain, Mild (1-3) Aspirin (Aspirin 325 Mg Tab) 325 mg PO QDAY FAN Atorvastatin Calcium (Atorvastatin 40 Mg Tab) 40 mg PO QHS FAN Bisacodyl (Bisacodyl 10 Mg Rect Supp) 10 mg VA QDAY PRN PRN Reason: Constipation Chlordiazepoxide HCl (Chlordiazepoxide 25 Mg Cap) 50 mg PO Q1HR PRN PRN Reason: CIWA-Ar 8-15 Thiamine HCl 100 mg/ Folic Acid 1 mg/ Multivitamins/Minerals 10 ml/ Sodium Chloride 1,011.2 mls @ 250 mls/hr IV ONCE ONE Stop: 04/15/22 23:55 Last Admin: 04/15/22 21:50 Dose: 250 mls/hr Sodium Chloride (Nacl 0.9% 1000 Ml) 1,000 mls @ 125 mls/hr IV DIRECT FAN Ibuprofen (Ibuprofen 600 Mg Tab) 600 mg PO Q6H PRN PRN Reason: Pain, Mild (1-3) Lorazepam (Lorazepam 2 Mg/Ml Vial) 2 mg IV Q1HR PRN PRN Reason: CIWA-Ar 8-15 Lorazepam (Lorazepam 2 Mg/Ml Vial) 4 mg IV Q1HR PRN PRN Reason: CIWA-Ar 16-25 Lorazepam (Lorazepam 2 Mg/Ml Vial) 4 mg IV Q15MIN PRN PRN Reason: CIWA-Ar >25 Magnesium Hydroxide (Magnesium Hydroxide (Mom) Oral Liqd Udc) 30 ml PO Q4H PRN PRN Reason: Constipation Magnesium Hydroxide (Magnesium Hydroxide (Mom) Oral Liqd Udc) 30 ml PO Q4H PRN PRN Reason: Constipation Metoclopramide HCl (Metoclopramide 10 Mg Tab) 10 mg PO Q6H PRN PRN Reason: Nausea And Vomiting Morphine Sulfate (Morphine 2 Mg/1 Ml Inj) 2 mg IV Q4H PRN PRN Reason: Pain, Moderate (4-6) Morphine Sulfate (Morphine 4 Mg/1 Ml Inj) 4 mg IV Q4H PRN PRN Reason: Pain , Severe (7-10) Morphine Sulfate (Morphine 2 Mg/1 Ml Inj) 2 mg IV Q4H PRN PRN Reason: Pain, Moderate (4-6) Morphine Sulfate (Morphine 4 Mg/1 Ml Inj) 4 mg IV Q4H PRN PRN Reason: Pain , Severe (7-10) Ondansetron HCl (Ondansetron 4 Mg/2 Ml Inj) 4 mg IV Q8H PRN PRN Reason: Nausea And Vomiting Ondansetron HCl (Ondansetron 4 Mg/2 Ml Inj) 4 mg IV Q8H PRN PRN Reason: Nausea And Vomiting Promethazine HCl (Promethazine 25 Mg Rect Supp) 25 mg VA Q6H PRN PRN Reason: Nausea And Vomiting Sodium Chloride (Sodium Chloride 0.9% 10 Ml Flush Syringe) 10 ml IV BID FAN Sodium Chloride (Sodium Chloride 0.9% 10 Ml Flush Syringe) 10 ml IV PRN PRN PRN Reason: LINE FLUSH Sodium Chloride (Sodium Chloride 0.9% 10 Ml Flush Syringe) 10 ml INJ PRN PRN PRN Reason: LINE FLUSH Review of Systems Constitutional: no fever, no chills Ears, nose, mouth and throat: no nasal congestion, no sore throat Cardiovascular: no chest pain, no palpitations Respiratory: no cough, no shortness of breath Gastrointestinal: no nausea, no vomiting, no diarrhea Genitourinary Male: no dysuria, no hematuria, no flank pain Musculoskeletal: no neck pain, no low back pain Integumentary: no rash, no pruritis Neurological: ataxia, balance difficulties, gait dysfunction, no headaches, no confusion Psychiatric: no anxiety, no depression Endocrine: no polydipsia, no polyuria, no nocturia Exam - Constitutional Vitals: Temp Pulse Resp BP Pulse Ox 98.1 F 114 H 20 134/99 99 04/15/22 19:42 04/15/22 22:01 04/15/22 22:01 04/15/22 22:01 04/15/22 22:01 General appearance: Present: no acute distress, well-nourished - EENT Eyes: Present: PERRL, EOM intact. Absent: scleral icterus ENT: hearing intact, clear oral mucosa, dentition normal - Respiratory Respiratory: bilateral: CTA - Cardiovascular Rhythm: regular Heart Sounds: Present: S1 & S2. Absent: gallop, systolic murmur, diastolic murmur, rub, click - Extremities Extremities: no ischemia, pulses intact, pulses symmetrical, No edema, normal temperature, normal color, Full ROM Peripheral Pulses: within normal limits - Abdominal General gastrointestinal: Present: soft, non-tender, non-distended, normal bowel sounds. Absent: mass - Integumentary Integumentary: Present: clear, warm, dry, normal turgor. Absent: rash - Musculoskeletal Musculoskeletal: strength equal bilaterally - Psychiatric Psychiatric: appropriate mood/affect, intact judgment & insight, memory intact, cooperative - Neurologic Neurologic: CNII-XII intact, no focal deficits, moves all extremities HEART Score - HEART Score Troponin: Troponin T < 0.010 ng/mL (0.00-0.029) 04/15/22 18:55 Results - Labs CBC & Chem 7: 04/15/22 18:55 04/15/22 18:55 Labs: Abnormal lab results 04/15/22 04/15/22 04/15/22 Range/Units 18:55 18:55 18:55 RBC 5.44 H (3.65-5.03) M/mm3 MCV 77 L (84-94) fl MCH 25 L (28-32) pg [place] % (Auto) 7.7 H (0.0-7.3) % Carbon Dioxide 21 L (22-30) mmol/L Glucose 109 H (75-100) mg/dL AST 46 H (5-40) units/L ALT 59 H (7-56) units/L Ammonia 70.0 H (25-60) umol/L Total Creatine Kinase 331 H (55-170) units/L Total Protein 8.6 H (6.3-8.2) g/dL Salicylates (2.8-20.0) mg/dL Acetaminophen (10.0-30.0) ug/mL 04/15/22 04/15/22 Range/Units 18:55 18:55 RBC (3.65-5.03) M/mm3 MCV (84-94) fl MCH (28-32) pg [place] % (Auto) (0.0-7.3) % Carbon Dioxide (22-30) mmol/L Glucose (75-100) mg/dL AST (5-40) units/L ALT (7-56) units/L Ammonia (25-60) umol/L Total Creatine Kinase (55-170) units/L Total Protein (6.3-8.2) g/dL Salicylates < 0.3 L (2.8-20.0) mg/dL Acetaminophen 5.0 L (10.0-30.0) ug/mL Assessment and Plan - Patient Problems (1) Unsteady gait Current Visit: Yes Status: Acute Plan to address problem: Etiology unclear. Patient will be his work-up for possible CVA. Will place on daily aspirin . We will also check RPR. We will schedule for echocardiogram, carotid Doppler and MRI of the brain. (2) Alcohol abuse Current Visit: Yes Status: Acute Plan to address problem: She will be placed on the CIWA protocol. He had a banana bag in the emergency room. We will continue on daily multivitamins. (3) Transaminitis Current Visit: Yes Status: Acute Plan to address problem: Possibly related to alcohol abuse. Will monitor liver enzymes. (4) DVT prophylaxis Current Visit: No Status: Acute Plan to address problem: Patient placed on subcutaneous heparin (5) Full code status Current Visit: Yes Status: Acute Plan to address problem: Patient is full code.
[2022-04-16] MEDS: SODIUM CHLORIDE 0.9% 1000 ML 1,000 ML IV SCH ×2 (03:10→11:47)
[2022-04-16 05:26] LABS: BUN/Creatinine Ratio 8; Blood Urea Nitrogen 10 mg/dL (9-20); Calcium 8.9 mg/dL (8.4-10.2); Hemolysis Index 5
[2022-04-16] MEDS: HEPARIN 5,000 UNIT/1 ML VIAL SUB-Q SCH ×3 (06:37→21:47)
[2022-04-16] MEDS ORDERED: POTASSIUM CHLORIDE ER 20 MEQ TAB PO SCH (09:30)
[2022-04-16] MEDS: THIAMINE 100 MG TAB PO SCH (11:47)
[2022-04-16] MEDS: ASPIRIN 325 MG TAB PO SCH (11:47)
--- NOTE | 2022-04-16 12:31 | Electrocardiograph Report ---
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
--- NOTE | 2022-04-16 13:58 | Vascular Lab Report ---
DUPLEX DOPPLER ULTRASOUND CAROTID, BILATERAL INDICATION / CLINICAL INFORMATION: stroke. COMPARISON: None available. FINDINGS: RIGHT CAROTID: Minimal atherosclerotic plaque. - PLAQUE ESTIMATE (%): < 50% - CCA velocity: 74 cm/sec. - ICA peak systolic velocity: 65 cm/sec. - ICA/CCA PSV Ratio: Less than 2. Right Vertebral Artery: Antegrade flow. LEFT CAROTID: Minimal atherosclerotic plaque. - PLAQUE ESTIMATE (%): < 50% - CCA velocity: 91 cm/sec. - ICA peak systolic velocity: 77 cm/sec. - ICA/CCA PSV Ratio: Less than 2. Left Vertebral Artery: Antegrade flow. IMPRESSION: 1. Right Internal Carotid Artery: Less than 50% diameter stenosis. 2. Left Internal Carotid Artery: Less than 50% diameter stenosis. Velocity criteria are extrapolated from diameter data as defined by the Society of Radiologists in Ul trasound Consensus Conference, Radiology 2003; 229;340-346. NO STENOSIS (NORMAL) - Plaque = none; ICA PSV < 125 cm/sec; ICA/CCA PSV Ratio < 2.0 <50% STENOSIS - Plaque < 50%; ICA PSV < 125 cm/sec; ICA/CCA PSV Ratio < 2.0 50-69% STENOSIS - Plaque > 50%; ICA PSV = 125-230 cm/sec; ICA/CCA PSV Ratio = 2.0-4.0 >70% BUT <100% STENOSIS - Plaque > 50%; ICA PSV > 230 cm/sec; ICA/CCA PSV Ratio > 4.0 NEAR OCCLUSION - Plaque = visible lumen; ICA PSV = high/low/none; ICA/CCA PSV Ratio = variable TOTAL OCCLUSION - Plaque = no lumen; ICA PSV = none; ICA/CCA PSV Ratio = N/A Scribed by: Cara Mccartney RDMS, RVT, RMSKS Scribed: 04/16/2022 12:18 PM I have reviewed the images, agree with this report, and edited this report as needed. Signer Name: Negrito Verdugo MD Signed: 04/16/2022 1:53 PM Workstation Name: [id number]
--- NOTE | 2022-04-16 16:16 | Progress Note ---
Assessment and Plan --Hypokalemia, replete and monitor -- Unsteady gait Current Visit: Yes Status: Acute Plan to address problem: Etiology unclear. Patient will be his work-up for possible CVA. Will place on daily aspirin . We will also check RPR. We will schedule for echocardiogram, carotid Doppler and MRI of the brain. -- Alcohol abuse Current Visit: Yes Status: Acute Plan to address problem: She will be placed on the CIWA protocol. He had a banana bag in the emergency room. We will continue on daily multivitamins. -- Transaminitis Current Visit: Yes Status: Acute Plan to address problem: Possibly related to alcohol abuse. Will monitor liver enzymes. -- DVT prophylaxis Current Visit: No Status: Acute Plan to address problem: Patient placed on subcutaneous heparin -- Full code status Current Visit: Yes Status: Acute Plan to address problem: Patient is full code. -- Continue to monitor clinically with CIWA protocol. Patient unable to get MRI brain due to severe claustrophobia. Plan to repeat CT head tomorrow in the morning. If clinically remains stable possible DC in the morning. Replete potassium, follow BMP Subjective Date of service: 04/16/22 Interval history: Patient seen and examined. Medical records and medication list reviewed. No acute event overnight noted by the RN. Patient denies any chest pain or difficulty breathing. Patient is tolerating diet. Patient unable to get MRI due to severe claustrophobia Discussed plan of care at bedside with patient. Admits to drinking daily alcohol Objective - Exam Narrative Exam: GENERAL: well-developed and well-nourished male lying on bed appeared to be in no discomfort. HEENT: Normocephalic. Atraumatic. No conjunctival congestion or icterus. Patient has moist mucous membranes. NECK: Supple. Trachea midline. CHEST/LUNGS: Clear to auscultated bilaterally, breathing nonlabored. No wheezes crackles or rhonchi. HEART/CARDIOVASCULAR: Regular in rate and rhythm. S1 and S2 positive. ABDOMEN: Abdomen is soft, nontender. Patient has normal bowel sounds. SKIN: There is no rash. Warm and dry. NEURO: No focal motor deficit. Follows command. Positive for mild asterixis MUSCULOSKELETAL: No joint effusion or tenderness. EXTRIMITY: No edema, no cyanosis or clubbing. PSYCH: Cooperative. - Constitutional Vitals: Vital Signs - 12hr 04/16/22 04/16/22 04/16/22 07:46 08:32 11:43 Temperature 98.5 F 98.3 F Pulse Rate 79 82 Respiratory 18 Rate Blood Pressure 149/97 156/94 O2 Sat by Pulse 97 98 97 Oximetry 04/16/22 04/16/22 11:49 15:32 Temperature 98.4 F Pulse Rate 82 Respiratory Rate Blood Pressure 148/94 144/97 O2 Sat by Pulse 97 Oximetry - Labs CBC & Chem 7: 04/15/22 18:55 04/16/22 04:26 Labs: Abnormal lab results 04/15/22 04/15/22 04/15/22 Range/Units 18:55 18:55 18:55 RBC 5.44 H (3.65-5.03) M/mm3 MCV 77 L (84-94) fl MCH 25 L (28-32) pg [place] % (Auto) 7.7 H (0.0-7.3) % Potassium (3.6-5.0) mmol/L Chloride (98-107) mmol/L Carbon Dioxide 21 L (22-30) mmol/L Glucose 109 H (75-100) mg/dL AST 46 H (5-40) units/L ALT 59 H (7-56) units/L Ammonia 70.0 H (25-60) umol/L Total Creatine Kinase 331 H (55-170) units/L Total Protein 8.6 H (6.3-8.2) g/dL Salicylates (2.8-20.0) mg/dL Acetaminophen (10.0-30.0) ug/mL 04/15/22 04/15/22 04/16/22 Range/Units 18:55 18:55 04:26 RBC (3.65-5.03) M/mm3 MCV (84-94) fl MCH (28-32) pg [place] % (Auto) (0.0-7.3) % Potassium 3.3 L D (3.6-5.0) mmol/L Chloride 108.5 H (98-107) mmol/L Carbon Dioxide 20 L (22-30) mmol/L Glucose 105 H (75-100) mg/dL AST (5-40) units/L ALT (7-56) units/L Ammonia (25-60) umol/L Total Creatine Kinase (55-170) units/L Total Protein (6.3-8.2) g/dL Salicylates < 0.3 L (2.8-20.0) mg/dL Acetaminophen 5.0 L (10.0-30.0) ug/mL HEART Score - HEART Score Troponin: Troponin T < 0.010 ng/mL (0.00-0.029) 04/15/22 18:55
--- NOTE | 2022-04-16 23:49 | Consultation ---
History of Present Illness Consult date: 04/16/22 Reason for Consult: Unsteady gait Chief complaint: Unsteady gait History of present illness: 42 yo male with hypertension, alcohol abuse, presents with noted unsteady gait with periods of confusion. Patient was not seen via televideo due to technical issues. Past History Past Medical History: hypertension, other (Pneumonia in the past) Past Surgical History: Other (Right hand tendon surgery) Social history: alcohol abuse Family history: no significant family history Medications and Allergies Allergies Allergy/AdvReac Type Severity Reaction Status Date / Time No Known Allergies Allergy Unverified 09/14/15 00:36 Home Medications Medication Instructions Recorded Confirmed Last Taken Type allopurinoL [Zyloprim] 300 mg PO QDAY 04/16/22 04/16/22 Unknown History lisinopriL [Lisinopril] 20 mg PO QDAY 04/16/22 04/16/22 Unknown History Active Meds: Active Medications Acetaminophen (Acetaminophen 325 Mg Tab) 650 mg PO Q4H PRN PRN Reason: Pain, Mild (1-3) Aspirin (Aspirin 325 Mg Tab) 325 mg PO QDAY [facility] Last Admin: 04/16/22 11:47 Dose: 325 mg Atorvastatin Calcium (Atorvastatin 40 Mg Tab) 40 mg PO QHS [facility] Last Admin: 04/16/22 21:47 Dose: 40 mg Bisacodyl (Bisacodyl 10 Mg Rect Supp) 10 mg [place] QDAY PRN PRN Reason: Constipation Chlordiazepoxide HCl (Chlordiazepoxide 25 Mg Cap) 50 mg PO Q1HR PRN PRN Reason: CIWA-Ar 8-15 Heparin Sodium (Porcine) (Heparin 5,000 Unit/1 Ml Vial) 5,000 unit SUB-Q Q8HR [facility] Last Admin: 04/16/22 21:47 Dose: 5,000 unit Sodium Chloride (Nacl 0.9% 1000 Ml) 1,000 mls @ 125 mls/hr IV DIRECT [facility] Last Admin: 04/16/22 11:47 Dose: 125 mls/hr Ibuprofen (Ibuprofen 600 Mg Tab) 600 mg PO Q6H PRN PRN Reason: Pain, Mild (1-3) Lorazepam (Lorazepam 2 Mg/Ml Vial) 2 mg IV Q1HR PRN PRN Reason: CIWA-Ar 8-15 Lorazepam (Lorazepam 2 Mg/Ml Vial) 4 mg IV Q1HR PRN PRN Reason: CIWA-Ar 16-25 Lorazepam (Lorazepam 2 Mg/Ml Vial) 4 mg IV Q15MIN PRN PRN Reason: CIWA-Ar >25 Magnesium Hydroxide (Magnesium Hydroxide (Mom) Oral Liqd Udc) 30 ml PO Q4H PRN PRN Reason: Constipation Metoclopramide HCl (Metoclopramide 10 Mg Tab) 10 mg PO Q6H PRN PRN Reason: Nausea And Vomiting Morphine Sulfate (Morphine 2 Mg/1 Ml Inj) 2 mg IV Q4H PRN PRN Reason: Pain, Moderate (4-6) Morphine Sulfate (Morphine 4 Mg/1 Ml Inj) 4 mg IV Q4H PRN PRN Reason: Pain , Severe (7-10) Ondansetron HCl (Ondansetron 4 Mg/2 Ml Inj) 4 mg IV Q8H PRN PRN Reason: Nausea And Vomiting Promethazine HCl (Promethazine 25 Mg Rect Supp) 25 mg NJ Q6H PRN PRN Reason: Nausea And Vomiting Sodium Chloride (Sodium Chloride 0.9% 10 Ml Flush Syringe) 10 ml IV BID [facility] Last Admin: 04/16/22 21:47 Dose: 10 ml Sodium Chloride (Sodium Chloride 0.9% 10 Ml Flush Syringe) 10 ml IV PRN PRN PRN Reason: LINE FLUSH Thiamine HCl (Thiamine 100 Mg Tab) 100 mg PO QDAY [facility] Last Admin: 04/16/22 11:47 Dose: 100 mg Physical Examination - Vital Signs Vital Signs: Vital Signs Pulse Ox 98 04/15/22 17:44 - Physical Exam Narrative exam: Patient was not seen via televideo. Results - Laboratory Findings CBC and BMP: 04/15/22 18:55 04/16/22 04:26 Abnormal Lab Findings: Abnormal Labs 04/15/22 04/15/22 04/15/22 18:55 18:55 18:55 RBC 5.44 H MCV 77 L MCH 25 L [place] % (Auto) 7.7 H Potassium Chloride Carbon Dioxide 21 L Glucose 109 H AST 46 H ALT 59 H Ammonia 70.0 H Total Creatine Kinase 331 H Total Protein 8.6 H Salicylates Acetaminophen 04/15/22 04/15/22 04/16/22 18:55 18:55 04:26 RBC MCV MCH [place] % (Auto) Potassium 3.3 L D Chloride 108.5 H Carbon Dioxide 20 L Glucose 105 H AST ALT Ammonia Total Creatine Kinase Total Protein Salicylates < 0.3 L Acetaminophen 5.0 L Assessment and Plan ertension, alcohol abuse, presents with noted unsteady gait with periods of confusion. Patient was not seen via televideo due to technical issues. 1. Acute Unsteadines of Gait w/ confusion - wide ddx including metabolic, toxic, vitaimin deficiencies, along with neurovascular etiologies; pt/ot evaluation/monitoring. 2. Acute Ischmeic Stroke - antiplaelet/staitn therapy until mri brain w/ wo contrast results. 3. Alcohol Abuse / Withdrawal - monitor for signs of withdrawal; consider cwa protocol per primary team. 4. Acute Metabolic Encephalopathy - in the setting of underlying metabolic abnormailities including hyperammonemia. 5. Iron-deficiency Anemia - workup per primary team; r/o cerebral neoplasm w/ mri brain w/ wo contrast. Arnoldo Aponte MD Neurology
[2022-04-17 05:45] LABS: BUN/Creatinine Ratio 9; Blood Urea Nitrogen 8 mg/dL (9-20); Calcium 8.5 mg/dL (8.4-10.2); Hemolysis Index 5
[2022-04-17] MEDS: HEPARIN 5,000 UNIT/1 ML VIAL SUB-Q SCH (06:13)
[2022-04-17] MEDS: THIAMINE 100 MG TAB PO SCH (09:20)
[2022-04-17] MEDS: ASPIRIN 325 MG TAB PO SCH (09:20)
--- NOTE | 2022-04-17 10:09 | Cat Scan Report ---
CT HEAD WITHOUT CONTRAST INDICATION / CLINICAL INFORMATION: CVA. TECHNIQUE: Axial imaging performed from the skull apex through the skull base without the use of cont rast. Sagittal and coronal reformatted images. All CT scans at this location are performed using CT dose reduction for ALARA by means of automated exposure control. COMPARISON: 04/15/2022 FINDINGS: CEREBRAL PARENCHYMA: There is suggestion of a very subtle 1.2 cm area of diminished attenuation in th e left basal ganglia region extending inferiorly to the left cerebral zoey. This could represent an e volving ischemic infarct. The remaining brain parenchyma demonstrates normal density. The morillo-white interface is well-defined. No chronic infarct. HEMORRHAGE: None. EXTRA-AXIAL SPACES: Normal in size and morphology for the patient's age. VENTRICULAR SYSTEM: Normal in size and morphology for the patient's age. MIDLINE SHIFT OR HERNIATION: None. CEREBELLUM / BRAINSTEM: No significant abnormality. CALVARIUM: No significant abnormality. ORBITS: Normal as visualized. PARANASAL SINUSES / MASTOID AIR CELLS: Normal as visualized. SOFT TISSUES of HEAD: No significant abnormality. ADDITIONAL FINDINGS: None. IMPRESSION: Questionable area of diminished attenuation in the left basal ganglia region as described which could represent an evolving ischemic infarct. Please correlate with the patient's clinical presentation an d consider further imaging with MRI. Signer Name: Mykel Schumacher Jr, MD Signed: 04/17/2022 10:05 AM Workstation Name: [id number]
[2022-04-17] MEDS ORDERED: LISINOPRIL 20 MG TAB PO SCH (12:00)
[2022-04-17] MEDS ORDERED: LISINOPRIL 10 MG TAB PO SCH (12:00)
[2022-04-17] MEDS ORDERED: allopurinoL 300 MG TAB PO SCH (12:00)
[2022-04-17 12:03] VITALS: BP 153/102
--- NOTE | 2022-04-17 12:13 | Discharge Summary ---
Providers - Providers Date of Admission: 04/15/22 22:30 Date of discharge: 04/17/22 Attending physician: MICHELLE MANRIQUE 04/15/22 22:28 Consult to Physician [CONS] Routine Comment: Consulting Provider: PALMER HEDRICK Physician Instructions: Reason For Exam: Unsteady gait 04/15/22 22:30 Consult to Dietitian/Nutrition [CONS] Routine Physician Instructions: Reason For Exam: Reason for Consult: Nutrition Recommendations Reason for Consult: Diet education Occupational Therapy Evaluate and Treat [CONS] Routine Comment: Reason For Exam: Neuro deficits Physical Therapy Evaluation and Treat [CONS] Routine Comment: Reason For Exam: Neuro deficits Primary care physician: [employer] Hospitalization Condition: Good Hospital course: 42-year-old -[place] male with significant past medical history of hypertension presenting to the emergency room with a complaint of unsteady gait. Unsteady gait was said to have started a few days ago which is accompanied by occasional periods of confusion. Patient denies any headache or dizziness and denies any diaphoresis. He denies use of any illicit drugs. He however drinks alcohol almost on a daily basis. He has not had any alcohol in about 24 hours. who was by the bedside also indicates that patient has had periods of bizarre and unusual behavior over the past few days. Work-up in the emergency room, lab reveals a slightly elevated liver enzymes, ammonia level and creatinine kinase. CT scan of the head was unremarkable. Patient was admitted with stroke protocol for evaluation of unsteady gait- to rule out possible CVA and possible alcohol withdrawal. Patient was admitted with CIWA protocol, placed on iv fluid. he refused to get MRI brain as he is claustrophobic even refused to get with medications. He was further evaluated with a repeat CT head after 48 hours which showed possible left basal ganglia hypoattenuation suggestive for possible CVA. Carotid Doppler showed less than 50% stenosis bilaterally. 2D echocardiogram showed preserved EF. Patient wanted to get MRI as outpatient and wanted to follow-up with PCP as outpatient to do further work-up. Patient was counseled for alcohol abstinence and he verbalized understanding. Patient was clinically stable and was discharged home with outpatient follow-up. Disposition: 01 HOME / SELF CARE / HOMELESS Final Discharge Diagnosis (Prints w/discharge instructions): -- Left basal ganglia acute CVA. --alcohol abuse. -- transaminitis. -- unsteady gait. -- Hypertension. -- History of gout Time spent for discharge: 34 minutes Core Measure Documentation - Palliative Care Palliative Care/ Comfort Measures: Not Applicable - Core Measures Any of the following diagnoses?: stroke - Stroke Discharge Requirements Statin for LDL = or >70 mg/dl on DC: Yes Anticoag for atrial fib/atrial flutter: Not Applicable Antithrombotic for ischemic stroke: Yes Exam - Physical Exam Narrative exam: GENERAL: well-developed and well-nourished male lying on bed appeared to be in no discomfort. HEENT: Normocephalic. Atraumatic. No conjunctival congestion or icterus. Patient has moist mucous membranes. NECK: Supple. Trachea midline. CHEST/LUNGS: Clear to auscultated bilaterally, breathing nonlabored. No wheezes crackles or rhonchi. HEART/CARDIOVASCULAR: Regular in rate and rhythm. S1 and S2 positive. ABDOMEN: Abdomen is soft, nontender. Patient has normal bowel sounds. SKIN: There is no rash. Warm and dry. NEURO: No focal motor deficit. Follows command. MUSCULOSKELETAL: No joint effusion or tenderness. EXTRIMITY: No edema, no cyanosis or clubbing. PSYCH: Cooperative. - Constitutional Vitals: Temp Pulse Resp BP Pulse Ox 98.7 F 80 20 141/97 98 04/17/22 07:24 04/17/22 07:24 04/17/22 04:34 04/17/22 07:24 04/17/22 09:23 Plan Activity: advance as tolerated Weight Bearing Status: Weight Bear as Tolerated Diet: low fat, low salt Additional Instructions: MRI brain without contrast as outpatient and follow-up with neurology in 1 week as outpatient Follow up with: PRIMARY CARE, [Primary Care Provider] - 3-5 Days Prescriptions: AtorvaSTATin [Lipitor] 40 mg PO QHS #30 tablet Aspirin 325 mg PO QDAY #30 tablet Folic Acid 1 mg PO DAILY #30 chlordiazePOXIDE [Librium] 50 mg PO Q1HR PRN #5 capsule PRN Reason: CIWA-Ar 8- Thiamine [Vitamin B-1] 100 mg PO QDAY #14 tablet
== END 2022-04-17 14:00 | disposition home or self-care (01) | DRG 64 ==
LOC: ED 15:27 → 4A 22:30
PROVIDERS: ADMIT Internal Medicine Geriatric Medicine; ATTEND Internal Medicine
DX: I63.9 Cerebral infarction, unspecified (principal); G93.41 Metabolic encephalopathy; E72.20 Disorder of urea cycle metabolism, unspecified; I10 Essential (primary) hypertension; D50.9 Iron deficiency anemia, unspecified; F10.10 Alcohol abuse, uncomplicated
CPT/HCPCS: 36415; 70450; 80048; 80053; 80320; 82140; 82550; 84443; 84484; 85025; 85610; 85730; 86592; 93005; 93306; 93880; G0378; J3490; C8929; G0480; J1644; J3411; J7030